=== PATIENT | female | born 1990 | race Caucasian/White ===

== ENCOUNTER 2023-03-21 08:55 | Outpatient (OUT) | payer OTHER, SELFPAY ==
--- NOTE | 2023-03-21 08:59 | US_ITS ---
[address] [address] Patient Name: LACEY BEAULIEU MRN: [id number] date: 1990 Sex: F Assigned Patient Location: US Current Patient Location: US Accession/Order Number: [id number] Exam Date: 03/21/2023 09:00 Report Date: 03/21/2023 10:23 At the request of: IRASEMA GRACE Procedure: US OB transvaginal EXAMINATION: US OB transvaginal HISTORY: MISSED PERIOD COMPARISON: No relevant comparison available. FINDINGS: Final Garcia intrauterine gestation Gestational sac: 4.12 cm, 9 weeks 4 days CRL: 2.02 cm, 8 weeks 4 days Yolk sac: 3.7 mm Heart rate: 167 bpm The uterus is normal, anteverted The ovaries are normal in appearance The cervix is closed measuring 4 cm in length Clinical age: 9 weeks 2 days Clinical BELKYS: 10/22/2019 fourth Ultrasound age: 9 weeks 1 day Ultrasound BELKYS: 10/23/2023 IMPRESSION: Viable garcia intrauterine gestation measuring 9 weeks 1 day Electronically authenticated by: STEPHANE CROWLEY Date: 03/21/2023 10:23
== END 2023-03-21 08:56 ==
PROVIDERS: Visit Provider Obstetrics & Gynecology
DX: Z34.91 Encounter for supervision of normal pregnancy, unspecified, first trimester (principal)
CPT/HCPCS: 76817

== ENCOUNTER 2023-04-21 12:43 | Outpatient (OUT) | payer OTHER, SELFPAY ==
[2023-04-21 14:04] LABS: Basophils Percent Auto 0.3 % (0.2-2.0); Eosinophils Percent Auto 0.3 % (0.9-7.0); Hematocrit 37.9 % (36.0-48.0); Hemoglobin 12.8 g/dL (12.0-16.0); Immature Granulocytes Abs Auto 0.06 10^3/uL (0.00-0.03); Immature Granulocytes Pct Auto 0.5 % (0.0-0.5); Lymphocytes Percent Auto 16.9 % (20.5-60.0); Mean Corpuscular HGB Conc 33.8 g/dL (29.9-35.2); Mean Platelet Volume 9.8 fL (9.5-13.5); Monocytes Absolute Auto 0.6 10^3/uL (0.3-0.8); Monocytes Percent Auto 5.1 % (1.7-12.0); Neutrophils Absolute Auto 9.2 10^3/uL (1.4-6.5); Neutrophils Percent Auto 76.9 % (43.0-75.0); Platelet Count 189 10^3/uL (150-450); Red Blood Count 4.26 10^6/uL (4.20-5.40); Red Cell Distribution Width 13.8 % (11.0-15.0)
[2023-04-21 14:52] LABS: Thyroid Stimulating Hormone 1.673 uIU/mL (0.358-3.740)
[2023-04-21 16:41] LABS: Estimated Average Glucose 97 mg/dL
[2023-04-22 05:07] LABS: HCV Ab Non Reactive (Non Reactive); HIV Ab/p24 Ag Screen Non Reactive (Non Reactive); Rubella Antibodies, IgG 3.49 index (Immune >0.99)
[2023-04-22 06:08] LABS: HBsAg Screen Negative (Negative)
[2023-04-22 12:09] LABS: Rapid Plasma Reagin, Quant Non Reactive (NonRea<1:1)
== END 2023-04-21 12:44 | disposition home or self-care (01) ==
LOC: LAB 12:46
PROVIDERS: Visit Provider Obstetrics & Gynecology
DX: N92.6 Irregular menstruation, unspecified (principal)
CPT/HCPCS: 36415; 83036; 84443; 85025; 86592; 86706; 86762; 86803; 86850; 86900; 86901; 87086; 87389

== ENCOUNTER 2023-04-22 20:44 | Outpatient (OUT) | payer OTHER, SELFPAY ==
[2023-04-25 16:10] LABS: Age Gdln ACOG Testing Note (.); HPV Aptima Negative (Negative); IGP, Aptima HPV, rfx 16/18,45 Note (.)
== END 2023-04-22 20:45 | disposition home or self-care (01) ==
PROVIDERS: Visit Provider Obstetrics & Gynecology
DX: Z12.4 Encounter for screening for malignant neoplasm of cervix (principal); Z11.51 Encounter for screening for human papillomavirus (HPV)
CPT/HCPCS: 87624; G0145

== ENCOUNTER 2023-05-15 12:33 | Outpatient (OUT) | payer OTHER, SELFPAY ==
[2023-05-15 14:56] LABS: Glucose 1 Hour 121 mg/dL
[2023-05-21 00:07] LABS: AFP Value 54.3 ng/mL (.); Gest. Age on Collection Date 17.1 weeks (.); Gestat. Age Based On Ultrasound (.); Insulin Dep Diabetes No (.); Maternal Age At EDD 31.7 yr (.); OSBR Risk 1 IN 3501 (.); Results Report (.)
== END 2023-05-15 12:34 | disposition home or self-care (01) ==
LOC: LAB 12:33
PROVIDERS: Visit Provider Obstetrics & Gynecology
DX: Z34.92 Encounter for supervision of normal pregnancy, unspecified, second trimester (principal)
CPT/HCPCS: 36415; 82105; 82950

== ENCOUNTER 2023-06-04 10:01 | Outpatient (OUT) | payer OTHER, SELFPAY ==
--- NOTE | 2023-06-04 10:06 | US_ITS ---
[address] [address] Patient Name: LACEY BEAULIEU MRN: [id number] date: 1990 Sex: F Assigned Patient Location: US Current Patient Location: Accession/Order Number: [id number] Exam Date: 06/04/2023 10:07 Report Date: 06/04/2023 12:15 At the request of: RENE CROSS Procedure: US OB anatomy EXAMINATION: US OB anatomy HISTORY: anatomic survey Z36.89 COMPARISON: No relevant comparison available. TECHNIQUE: Transabdominal sonographic examination was performed for obstetrical and evaluation. FINDINGS: Number: 1 Heart Rate: 146.7 bpm H.B. /min Amniotic Fluid Volume: Subjectively normal. position: Breech presentation, variable lie Placental Location: Anterior, the placental edge is 4.0 cm from the internal os Cervix Length: 5 cm , closed Normal anatomy: Lateral ventricles, cerebellum, posterior fossa, nose/lips, orbits, four-chamber heart, RVOT, LVOT, diaphragm, stomach, kidneys, abdominal cord insertion, bladder, umbilical cord arteries, three-vessel cord, spine, extremities BIOMETRY: BPD: 4.7 cm 20 weeks 2 days , 64% HC: 17.8 cm 20 weeks 2 days, 53% AC: 15.1 cm 20 weeks 2 days, 56% FL: 3.2 cm 20 weeks 0 days, 42% EFW:338.1 grams; 12 ounces, 57% FL/AC: 21.2 FL/BPD: 67.8 HC/AC: 1.2 GESTATIONAL AGE: Age by EDC: 20 weeks 0 days BELKYS by EDC: 10/22/2023 Age by current US: 20 weeks 2 days BELKYS by current US: 10/20/2023 US/US OB anatomy IMPRESSION: Placental edge is 4 cm from the internal os, otherwise normal anatomy scan *Reference: [facility] Practice Guideline for the performance of Obstetric Ultrasound Examinations, July 06, 2007. Electronically authenticated by: STEPHANE CROWLEY Date: 06/04/2023 12:15
--- NOTE | 2023-06-04 10:06 | US_ITS ---
[address] [address] Patient Name: LACEY BEAULIEU MRN: [id number] date: 1990 Sex: F Assigned Patient Location: US Current Patient Location: Accession/Order Number: [id number] Exam Date: 06/04/2023 10:07 Report Date: 06/04/2023 12:15 At the request of: RENE CROSS Procedure: US OB cervical length EXAMINATION: US OB anatomy HISTORY: anatomic survey Z36.89 COMPARISON: No relevant comparison available. TECHNIQUE: Transabdominal sonographic examination was performed for obstetrical and evaluation. FINDINGS: Number: 1 Heart Rate: 146.7 bpm H.B. /min Amniotic Fluid Volume: Subjectively normal. position: Breech presentation, variable lie Placental Location: Anterior, the placental edge is 4.0 cm from the internal os Cervix Length: 5 cm , closed Normal anatomy: Lateral ventricles, cerebellum, posterior fossa, nose/lips, orbits, four-chamber heart, RVOT, LVOT, diaphragm, stomach, kidneys, abdominal cord insertion, bladder, umbilical cord arteries, three-vessel cord, spine, extremities BIOMETRY: BPD: 4.7 cm 20 weeks 2 days , 64% HC: 17.8 cm 20 weeks 2 days, 53% AC: 15.1 cm 20 weeks 2 days, 56% FL: 3.2 cm 20 weeks 0 days, 42% EFW:338.1 grams; 12 ounces, 57% FL/AC: 21.2 FL/BPD: 67.8 HC/AC: 1.2 GESTATIONAL AGE: Age by EDC: 20 weeks 0 days BELKYS by EDC: 10/22/2023 Age by current US: 20 weeks 2 days BELKYS by current US: 10/20/2023 US/US OB cervical length IMPRESSION: Placental edge is 4 cm from the internal os, otherwise normal anatomy scan *Reference: [facility] Practice Guideline for the performance of Obstetric Ultrasound Examinations, July 06, 2007. Electronically authenticated by: STEPHANE CROWLEY Date: 06/04/2023 12:15
== END 2023-06-04 10:02 | disposition home or self-care (01) ==
LOC: US 10:01
PROVIDERS: Visit Provider Physician Assistant
DX: Z36.89 Encounter for other specified antenatal screening (principal)
CPT/HCPCS: 76805; 76817

== ENCOUNTER 2023-08-08 10:26 | Outpatient (OUT) | payer OTHER, SELFPAY ==
[2023-08-08 11:45] LABS: Basophils Percent Auto 0.3 % (0.2-2.0); Eosinophils Percent Auto 0.5 % (0.9-7.0); Hematocrit 37.9 % (36.0-48.0); Hemoglobin 12.2 g/dL (12.0-16.0); Immature Granulocytes Abs Auto 0.05 10^3/uL (0.00-0.03); Immature Granulocytes Pct Auto 0.6 % (0.0-0.5); Lymphocytes Percent Auto 22.2 % (20.5-60.0); Mean Corpuscular HGB Conc 32.2 g/dL (29.9-35.2); Mean Corpuscular Hemoglobin 29.7 pg (26.7-34.0); Mean Corpuscular Volume 92.2 fL (81.0-99.0); Mean Platelet Volume 9.8 fL (9.5-13.5); Monocytes Absolute Auto 0.5 10^3/uL (0.3-0.8); Monocytes Percent Auto 5.1 % (1.7-12.0); Neutrophils Absolute Auto 6.3 10^3/uL (1.4-6.5); Neutrophils Percent Auto 71.3 % (43.0-75.0); Platelet Count 215 10^3/uL (150-450); Red Blood Count 4.11 10^6/uL (4.20-5.40); Red Cell Distribution Width 13.2 % (11.0-15.0); White Blood Count 8.9 10^3/uL (4.0-11.0)
[2023-08-08 12:17] LABS: Glucose 1 Hour 166 mg/dL
== END 2023-08-08 10:27 | disposition home or self-care (01) ==
LOC: LAB 10:26
PROVIDERS: Visit Provider Obstetrics & Gynecology
DX: Z13.1 Encounter for screening for diabetes mellitus (principal)
CPT/HCPCS: 36415; 82950; 85025

== ENCOUNTER 2023-08-27 10:02 | Outpatient (OUT) | payer OTHER, SELFPAY ==
--- NOTE | 2023-08-27 10:06 | US_ITS ---
The [address] [address] Patient Name: LACEY BEAULIEU MRN: [id number] date: 1990 Sex: F Assigned Patient Location: US Current Patient Location: Accession/Order Number: [id number] Exam Date: 08/27/2023 10:07 Report Date: 08/28/2023 02:02 At the request of: RENE CROSS Procedure: US OB growth EXAMINATION: US OB growth HISTORY: Size Inconsistent With Dates O26.849 COMPARISON: Ultrasound OB anatomy 06/04/2023 FINDINGS: Heart Rate: 139.9 bpm Number: 1.0 Position: CEPHALIC Amniotic Fluid Volume: 13.5 cm Maximum Vertical Pocket: 3.8 cm BIOMETRY: BPD: 8.0 cm cm; 32 weeks 2 days; 49% HC: 29.2 cmcm; 32 weeks 1 days ; 18% AC: 30.3 cm cm; 34 weeks 2 days; 96% FL: 6.0 cm cm; 31 weeks 1 days; 17% EFW: 2099.6 grams; 72% FL/AC: 19.7 FL/BPD: 74.5 HC/AC: 1.0 GESTATIONAL AGE: Age by EDC: 32 weeks 0 days BELKYS by EDC: 10/22/2023 Age by US: 32 weeks 3 days BELKYS by US: 10/19/2023 US/US OB growth IMPRESSION: 1. Single live intrauterine with growth detailed above. Electronically authenticated by: ATIF DE LEON Date: 08/28/2023 02:02
[2023-08-27 10:49] LABS: Estimated Average Glucose 111 mg/dL; Glycohemoglobin A1C 5.5 % (4.5-6.2)
== END 2023-08-27 10:03 | disposition home or self-care (01) ==
LOC: US 10:02
PROVIDERS: Visit Provider Physician Assistant
DX: O26.843 Uterine size-date discrepancy, third trimester (principal); R73.09 Other abnormal glucose; Z3A.32 32 weeks gestation of pregnancy
CPT/HCPCS: 36415; 76816; 83036

== ENCOUNTER 2023-09-22 20:51 | Outpatient (REF) | payer OTHER, SELFPAY | END 2023-09-22 20:52 | disposition home or self-care (01) | LOC: LAB 20:51 | PROVIDERS: Visit Provider Physician Assistant | DX: Z34.93 Encounter for supervision of normal pregnancy, unspecified, third trimester (principal) | CPT/HCPCS: 87081 ==

== ENCOUNTER 2023-10-01 15:07 | Outpatient (OUT) | payer OTHER, SELFPAY ==
[2023-10-01 16:11] LABS: Alanine Aminotransferase 13 U/L (14-59); Aspartate Amino Transferase 14 U/L (15-37)
[2023-10-02 17:07] LABS: Bile Acids 2.8 umol/L (0.0-10.0)
== END 2023-10-01 15:08 | disposition home or self-care (01) ==
LOC: LAB 15:08
PROVIDERS: PCP Family Medicine; Visit Provider Obstetrics & Gynecology
DX: L29.9 Pruritus, unspecified (principal)
CPT/HCPCS: 36415; 82239; 84450; 84460

== ENCOUNTER 2023-10-15 05:05 | Inpatient (IN) | payer OTHER, SELFPAY ==
[2023-10-15] VITALS (57 sets, daily range): BP systolic 97–168; BP diastolic 50–95; PULSE 72–142; RESP 16–20; TEMP 36.3–36.4
--- OUTSIDE RECORDS SUMMARY | 2023-10-15 05:08 | XMS_ITS | CCD ---
Author Name Unknown Address [address] [place], [place] [address] Organization [facility] Care Team Providers Care Wardrobe Specialty Worker Name Role Phone Enma Palacios Unavailable SANJAY ., DR VILLALPANDO Attending Unavailable SANJAY ., DR VILLALPANDO Consulting Unavailable SANJAY ., DR VILLALPANDO Primary Care Unavailable SANJAY ., DR VILLALPANDO Admitting Unavailable IRASEMA GRACE Attending Unavailable RENE CROSS Attending Unavailable RENE RCOSS Attending Unavailable IRASEMA GRACE Attending Unavailable RENE CROSS Attending Unavailable Allergies Allergy Classification Reported Allergen(s) Allergy Type Date of Onset Reaction(s) Facility (1 source) Penicillin V Drug Allergy rash [facility] Other (1 source) sulfaSALAzine Drug Allergy rash [facility] Other (1 source) Penicillin Drug Allergy [facility] (1 source) Sulfonamides (Antibiotic) Drug allergy (disorder) [facility] Medications Current Medications Medication Drug Class(es) Dates Sig (Normalized) Sig (Original) IUD's (1 source) IUD's Active Problems Problem Classification Problem Date Documented Date Episodic/Chronic Immunizations and screening for infectious disease (2 sources) Contact with and (suspected) exposure to other viral communicable diseases; Translations: [Encounter for screening for human papillomavirus (HPV)] Onset: 07-24-2021 Resolved: 07-24-2021 Episodic Other screening for suspected conditions (not mental disorders or infectious disease) (4 sources) Encounter for screening for malignant neoplasm of cervix; Translations: [ENC SCREENING MALIG NEOPLASM CERV] Onset: 02-05-2023 Episodic Results Test Name Value Interpretation Reference Range Facil ity PAP ACOG PANEL 2: 30 to 65on 02-12-2023 . . Normal [facility] Comment on above: Result Comment: Performed at: WB Performed By: #### [id number] #### [facility] [address] [address] [address] Stephie Kelly Age Gdln ACOG Testing 30-65 Normal [facility] Comment on above: Performed By: #### [id number] #### [facility] [address] [address] [address] Stephie Kelly DIAGNOSIS: Comment Normal [facility] Comment on above: Result Comment: NEGATIVE FOR INTRAEPITHE LIAL LESION OR MALIGNANCY. Performed at: WB Performed By: #### [id number] #### [facility] [address] [address] [address] Stephie Kelly HPV Aptima Negative Normal Negative [facility] Comment on above: Result Comment: This nucleic acid amplif ication test detects fourteen high-risk HPV types (16,18,31,33,35,39,45,51,52,56,58,59,66,68) without differentiation. Performed at: =G Performed By: #### [id number] #### [facility] [address] [address] [address] Stephie Kelly HPV Genotype Reflex Comment Normal [facility] Comment on above: Result Comment: Criteria not met, HPV Ge notype not performed. Performed at: WB Performed By: #### [id number] #### [facility] [address] [place] [address] Dr. Stephie Kelly Methodology: Comment Normal [facility] Comment on above: Result Comment: This liquid based ThinPr ep(R) pap test was screened with the use of an image guided system. Performed at: WB Performed By: #### [id number] #### [facility] [address] [place] [address] Dr. Stephie Kelly Note: Comment Normal [facility] Comment on above: Result Comment: The Pap smear is a scree leigh ann test designed to aid in the detection of premalignant and malignant conditions of the uterine cervix. It is not a diagnostic procedure and should not be used as the sole means of detecting cervical cancer. Both false-positive and false-negative reports do occur. . Performed at: WB Performed By: #### [id number] #### [facility] [address] [address] [address] Stephie Kelly Performed by: Comment Normal [facility] Comment on above: Result Comment: Lor Anthony, Cytot echnologist (ASCP) Performed at: WB Performed By: #### [id number] #### [facility] [address] [address] [address] Stephie Kelly Specimen adequacy: Comment Normal [facility] Comment on above: Result Comment: Satisfactory for evaluat ion. Endocervical and/or squamous metaplastic cells (endocervical component) are present. Performed at: WB Performed By: #### [id number] #### [facility] [address] [address] [address] Stephie Kelly COVID Quick Testingon 2020 Result Negative [facility] Other Vital Signs Date Time Vital Sign Value Performing Clinician Facility 07-24-2021 16:50-0400 Body height 165.1 cm Enma Palacios Other [facility] Other 07-24-2021 16:50-0400 Body mass index (BMI) [Ratio] 25.79 kg/m2 Enma Palacios Other [facility] Other 07-24-2021 16:50-0400 Body temperature 99.1 [degF] Enma Palacios Other [facility] Other 07-24-2021 16:50-0400 Body weight 70.31 kg Enma Palacios Other [facility] Other 07-24-2021 16:50-0400 Respiratory rate 18 /min Enma Palacios Other [facility] Other 07-24-2021 16:50-0400 SaO2% (BldA) [Mass fraction] 99 % Enma Palacios Other [facility] Other Encounters Encounter Date Encounter Type Care Provider Facility Start: 10-08-2023 End: 10-08-2023 ambulatory RENE AMERICA Not Available Start: 10-01-2023 End: 10-01-2023 ambulatory IRASEMA GRACE Not Available Start: 09-22-2023 End: 09-22-2023 ambulatory RENE CROSS Not Available Start: 09-08-2023 End: 09-08-2023 ambulatory IRASEMA SANJAY Not Available Start: 08-25-2023 End: 08-25-2023 ambulatory RENE AMERICA Not Available Start: 02-05-2023 End: 02-05-[address] IRASEMA GRACE . Facility: Start: 07-24-2021 Office outpatient vi sit 15 minutes Emna Palacios [facility] Payers Date Payer Category Payer Unknown [id number] 1990 Unknown [id number] 2.16.84 [id number] 1990 Unknown [id number] 1990 Unknown [id number] 1990 Unknown [id number] 1990 Unknown [id number] 1990 Unknown [id number] 1957 Unknown [id number] Unknown [id number] Social History Date Type Detail Facility Sex Assigned At [facility] Other Evaluation note 07-24-2021 Note Date & Type Note Facility 07-24-2021 Evaluation note Encounter Date Diagnosis Assessment Notes Jul, Contact with and (suspected) exposure to other viral communicable diseases (ICD-10 - Z20.828) Today test was performed in office. Results are currently negative. That does not mean that you will not develop COVID or do not currently have a low viral count of COVID. The rapid test works best if symptoms have been over 72 hours and the results can vary if you are asymptomatic There is a higher chance of false negative results to occur if testing is performed too soon. It is recommended that even if results are negative and you have been exposed to someone that has COVID that you follow current CDC recommendations . These can be found at CDC.GOV. Follow up with primary care provider if symptoms persist or do not improve Jul, Other Additional time spent conducting pre-visit phone call, screening for symptoms, instructions on social distancing, application and removal of PPE, and cleaning of examination room, equipment and supplies was preformed. Patient education given for testing methodology and results. Patient care instructions given in writting by [facility] document. [facility] Other Summary Purpose Family History No Family History Records FoundNo Family History Records Found Advance Directives No Advanced Directives Records FoundNo Advanced Directives Records Found Additional Source Comments REASON FOR VISIT (unrecogniz ed section and content) #29 BODYACHES, H/A, DIARRHEA X 3 DAYS, COVID Provider Visit INFORMATION SOURCE (unrecogn ized section and content) DATE CREATED AUTHOR [facility]12/2023 [facility] DATE CREATED AUTHOR 'S ORGANIZ ATION 10/09/2023 [facility] FOR RECORDS PERTAINING TO PATIENTS WHO ARE OR HAVE BEEN ENROLLED IN A CHEMICAL DEPENDENCY/SUBSTANCEABUSE PROGRAM, SOME INFORMATION MAY BE OMITTED. This clinical summary was aggregated from multiple sources. Caution should be exercised in using it in the provision of clinical care. This summary normalizes information from multiple sources, and as a consequence, information in this document may materially change the coding, format and clinical context of patient data. In addition, data may be omitted in some cases. CLINICAL DECISIONS SHOULD BE BASED ON THE PRIMARY CLINICAL RECORDS. [facility]. provides no warranty or guarantee of the accuracy or completeness of information in this document.
[2023-10-15 06:15] LABS: Hematocrit 37.6 % (36.0-48.0); Hemoglobin 12.3 g/dL (12.0-16.0); Mean Corpuscular HGB Conc 32.7 g/dL (29.9-35.2); Mean Corpuscular Hemoglobin 29.2 pg (26.7-34.0); Mean Corpuscular Volume 89.3 fL (81.0-99.0); Mean Platelet Volume 11.6 fL (9.5-13.5); Platelet Count 195 10^3/uL (150-450); Red Blood Count 4.21 10^6/uL (4.20-5.40); Red Cell Distribution Width 14.8 % (11.0-15.0); White Blood Count 11.1 10^3/uL (4.0-11.0)
[2023-10-15] MEDS: OXYTOCIN 10 UNIT in 0.9 % SODIUM CHLORIDE 500 ML 6.012 UNIT IV (07:00)
[2023-10-15 09:09] LABS: Cannabinoid Screen Urine NEGATIVE (NEGATIVE); Cocaine Screen Urine NEGATIVE (NEGATIVE); Methamphetamines Screen Urine NEGATIVE (NEGATIVE); Opiate Screen Urine NEGATIVE (NEGATIVE); Phencyclidine Screen Urine NEGATIVE (NEGATIVE)
[2023-10-15 09:10] LABS: Amphetamine Screen Urine NEGATIVE (NEGATIVE); Barbiturates Screen Urine NEGATIVE (NEGATIVE); Benzodiazepines Screen Urine NEGATIVE (NEGATIVE); Buprenorphine Screen Urine NEGATIVE (NEGATIVE); Methadone Screen Urine NEGATIVE (NEGATIVE); Oxycodone Screen Urine NEGATIVE (NEGATIVE); Tricyclic Antidepressant Urine NEGATIVE (NEGATIVE)
[2023-10-15] MEDS: 0.9 % SODIUM CHLORIDE 1,000 ML 1000 ML IV (11:24)
[2023-10-15] MEDS: LIDOCAINE HCL 2% PF 100 MG/5 ML VIAL INJ (12:28)
[2023-10-15] MEDS: FENTANYL CITRATE/PF 100 MCG/2 ML VIAL EPIDURAL (12:28)
[2023-10-15] MEDS: ROPIVACAINE HCL/PF 400 MG/200 ML PREMIX 6 MG EPIDURAL (12:29)
[2023-10-15] MEDS: 0.9 % SODIUM CHLORIDE 1,000 ML 125 ML IV (12:30)
--- NOTE | 2023-10-15 16:29 | PM.OBPRCVD ---
Procedure Intrapartal events: None Induction method: per misoprostol protocol Delivery augmentation: rupture of membranes and pitocin Delivery monitor: external FHT and external uterine Route of delivery: Episiotomy Description: none Laceration description: perineal - 1st degree Delivery repair: Vicryl Estimated blood loss (mL): 250 Anesthesia type: Epidural Disposition: floor Infant Delivery date: 10/15/23 Gender: female presentation: vertex Placental delivery description: Spontaneous cord description: 3 Vessels
[2023-10-15] MEDS: IBUPROFEN 600 MG TABLET PO (20:56)
[2023-10-16 01:44] VITALS: BP 125/68; PULSE 79; TEMP 36.9
[2023-10-16] MEDS: IBUPROFEN 600 MG TABLET PO ×2 (03:29→11:22)
[2023-10-16] MEDS: BENZOCAINE/MENTHOL 85 GRAM SPRAY BOTTLE 1 APPLIC TOPICAL (03:30)
[2023-10-16] MEDS: GLYCERIN/WITCH HAZEL PADS 1 PAD TOPICAL (03:31)
[2023-10-16 05:49] LABS: Basophils Percent Auto 0.3 % (0.2-2.0); Eosinophils Percent Auto 0.2 % (0.9-7.0); Hematocrit 32.7 % (36.0-48.0); Hemoglobin 10.2 g/dL (12.0-16.0); Immature Granulocytes Abs Auto 0.07 10^3/uL (0.00-0.03); Immature Granulocytes Pct Auto 0.5 % (0.0-0.5); Lymphocytes Absolute Auto 3.3 10^3/uL (1.2-3.8); Lymphocytes Percent Auto 25.4 % (20.5-60.0); Mean Corpuscular HGB Conc 31.2 g/dL (29.9-35.2); Mean Corpuscular Hemoglobin 28.5 pg (26.7-34.0); Mean Corpuscular Volume 91.3 fL (81.0-99.0); Mean Platelet Volume 11.2 fL (9.5-13.5); Monocytes Absolute Auto 0.9 10^3/uL (0.3-0.8); Monocytes Percent Auto 6.9 % (1.7-12.0); Neutrophils Absolute Auto 8.6 10^3/uL (1.4-6.5); Neutrophils Percent Auto 66.7 % (43.0-75.0); Platelet Count 168 10^3/uL (150-450); Red Blood Count 3.58 10^6/uL (4.20-5.40); White Blood Count 12.8 10^3/uL (4.0-11.0)
--- NOTE | 2023-10-16 07:51 | PM.OBPN ---
OB - PN: Subj Subjective Patient comments: no complaints, tolerating diet and flatus present infant status: doing well Exam Constitutional Vital Signs, click to edit/add: Last Vital Signs Temp 98.4 F 10/16/23 01:44 Pulse 79 10/16/23 01:44 Resp 18 10/15/23 17:22 BP 125/68 10/16/23 01:44 O2 Del Method Room Air 10/16/23 01:44 Common normals: no apparent distress and oriented x3 General appearance: cooperative and comfortable HENMT Common normals: normocephalic Eye Common normals: EOMs intact bilaterally Neck & C-Spine Common normals: no lymphadenopathy General: normal visual inspection Lymph Lymphatic: no lymphadenopathy noted Chest Common normals: inspection of chest normal Respiratory Common normals: normal respiratory effort, no use of accessory muscles and clear to auscultation bilaterally Cardio Common normals: regular rate and regular rhythm Rate: regular rate Rhythm: regular rhythm GI Common normals: Normal to inspection, nondistended, normoactive bowel sounds present Inspection: normal to inspection Auscultation: normoactive bowel sounds Palpation: soft Common normals: no CVA tenderness Back & Pelvis Common normals: no CVA tenderness Extremity Common normals: normal to inspection and full ROM Neuro Common normals: oriented x3 Sensorium/orientation: awake, alert, oriented to person, oriented to place and oriented to time Psych Common normals: mental status grossly normal Results Labs Labs: Short CBC 10/16/23 Range/Units 05:36 WBC 12.8 H (4.0-11.0) 10^3/uL Hgb 10.2 L (12.0-16.0) g/dL Hct 32.7 L (36.0-48.0) % Plt Count 168 (150-450) 10^3/uL Urinary Catheter Management Urinary Catheter Management Urethral: Cath placed during this visit: yes, but has since been removed by the nurse Insertion date: 10/15/23 Insertion time: 13:48 Removal date: 10/15/23 Removal time: 16:00 OB - PN: A/P Plan - Vaginal Delivery day: 1 Plan: routine care Time Spent with Patient Time: Total time spent is greater than 50% in coordination of care (as documented) at patient's floor/unit and/or counseling patient: Total time spent with greater than 50% in coordination of care (as documented) at patient's floor/unit and/or counseling patient: less than 15 minutes
[2023-10-16 08:15] VITALS: RESP 16; TEMP 37.1
[2023-10-16] MEDS: ACETAMINOPHEN 325 MG TABLET 650 MG PO (08:50)
[2023-10-16] MEDS: DOCUSATE SODIUM 100 MG CAPSULE PO (11:22)
--- NOTE | 2023-10-16 11:38 | PC.NURSE ---
given gift packs and teaching folder with explanation on all, medicated for back pain and reviewed plan of care
--- NOTE | 2023-10-16 13:11 | PC.NURSE ---
Reviewed latch and positioning, states doing better with each feed. Handouts given with discussion. New parents attentive and engaged to education.
--- NOTE | 2023-10-16 14:28 | PC.NURSE ---
discussed rash, voices no needs
[2023-10-16 19:40] VITALS: BP 128/66; PULSE 71
== END 2023-10-16 21:50 | disposition home or self-care (01) | DRG 807 ==
PROVIDERS: Admitting Provider Obstetrics & Gynecology; PCP Family Medicine; Visit Provider Obstetrics & Gynecology
DX: O70.0 First degree perineal laceration during delivery (principal); Z37.0 Single live birth; Z3A.39 39 weeks gestation of pregnancy
CPT/HCPCS: 36415; 51702; 59050; 59410; 80307; 85025; 85027; 86850; 86900; 86901; 96365; 96366; 96376; J2590; J2795; J3010

== ENCOUNTER 2023-12-17 10:25 | Outpatient (OUT) | payer OTHER, SELFPAY ==
--- NOTE | 2023-12-17 10:27 | US_ITS ---
The [address] [address] Patient Name: LACEY BEAULIEU MRN: [id number] date: 1990 Sex: F Assigned Patient Location: US Current Patient Location: US Accession/Order Number: [id number] Exam Date: 12/17/2023 10:30 Report Date: 12/17/2023 11:09 At the request of: IRASEMA GRACE Procedure: US pelvis transvaginal EXAM: Pelvic ultrasound HISTORY: . pelvic cramping R10.2 . COMPARISON: None. TECHNIQUE: Transvaginal scanning was performed FINDINGS: Scanning of the pelvis demonstrates uterus to measure 8.6 x 3.8 x 5.1 cm. Uterus is anteverted. Endometrial complex measures 3 mm. Linear hyperechoic structure is noted within the endometrial cavity of the lower uterine segment. Right ovary measures 2.6 x 2.7 x 1.7 cm. Color-flow is noted. No masses are noted. Left ovary measures 3.2 x 1.9 x 2.3 cm. Color-flow is noted. Follicles are noted. No fluid is noted in the cul-de-sac. US/US pelvis transvaginal IMPRESSION: 1. Anteverted uterus. 2. Endometrial complex measures 3 mm. 3. IUD is noted with the IUD within the lower uterine segment. The uppermost portion of the IUD lies within the lower uterine segment and extends inferiorly. The IUD does not extend into the endometrial cavity of the fundus of uterus. Electronically authenticated by: STEPHANE RUDOLPH Date: 12/17/2023 11:09
--- OUTSIDE RECORDS SUMMARY | 2023-12-17 10:28 | XMS_ITS | CCD ---
Author Name Unknown Address [address] [place] [address] Organization [facility] Care Team Providers Care Telephone Sex Worker Name Role Phone Enma Palacios Unavailable SANJAY ., DR VILLALPANDO Attending Unavailable SANJAY ., DR VILLALPANDO Consulting Unavailable SANJAY ., DR VILLALPANDO Primary Care Unavailable SNAJAY ., DR VILLALPANDO Admitting Unavailable IRASEMA GRACE Attending Unavailable RENE CROSS Attending Unavailable IRASEMA GRACE Attending Unavailable RENE CROSS Attending Unavailable RENE CROSS Attending Unavailable IRASEMA GRACE Attending Unavailable RENE CROSS Attending Unavailable Allergies Allergy Classification Reported Allergen(s) Allergy Type Date of Onset Reaction(s) Facility (1 source) Penicillin V Drug Allergy rash [employer] [facility] Other (1 source) sulfaSALAzine Drug Allergy rash [facility] Other (1 source) Penicillin Drug Allergy [facility] (1 source) Sulfonamides (Antibiotic) Drug allergy (disorder) [facility] Medications Current Medications Medication Drug [...] 30 to 65on 02-12-2023 . . Normal [facility] Comment on above: Result Comment: Performed at: WB Performed By: #### [id number] #### [facility] [address] [address] [address] Stephie Kelly Age Gdln ACOG Testing 30-65 Normal [facility] Comment on above: Performed By: #### [id number] #### [facility] [address] [address] [address] Stephie Kelly DIAGNOSIS: Comment Normal [facility] Comment on above: Result Comment: NEGATIVE FOR INTRAEPITHE LIAL LESION OR MALIGNANCY. Performed at: WB Performed By: #### [id number] #### [facility] [address] [address] [address] Stephie Kelly HPV Aptima Negative Normal Negative [facility] Comment on above: Result Comment: This nucleic acid amplif ication test detects fourteen high-risk HPV types (16,18,31,33,35,39,45,51,52,56,58,59,66,68) without differentiation. Performed at: =G Performed By: #### [id number] #### [facility] [address] [address] [address] Stephie Kelly HPV Genotype Reflex Comment Normal [facility] Comment on above: Result Comment: Criteria not met, HPV Ge notype not performed. Performed at: WB Performed By: #### [id number] #### [facility] [address] [place] [address] Dr. Stephie Kelly Methodology: Comment Normal [facility] Comment on above: Result Comment: This liquid based ThinPr ep(R) pap test was screened with the use of an image guided system. Performed at: WB Performed By: #### [id number] #### [facility] [address] [place] [address] Dr. Stephie Kelly Note: Comment Normal [facility] Comment on above: Result Comment: The Pap smear is a scree leigh ann test designed to aid in the detection of premalignant and malignant conditions of the uterine cervix. It is not a diagnostic procedure and should not be used as the sole means of detecting cervical cancer. Both false-positive and false-negative reports do occur. . Performed at: WB Performed By: #### [id number] #### [facility] [address] [address] [address] Stephie Kelly Performed by: Comment Normal [facility] Comment on above: Result Comment: Lor Anthony Cytot echnologist (ASCP) Performed at: WB Performed By: #### [id number] #### [facility] [address] [address] [address] Stephie Kelly Specimen adequacy: Comment Normal [facility] Comment on above: Result Comment: Satisfactory for evaluat ion. Endocervical and/or squamous metaplastic cells (endocervical component) are present. Performed at: WB Performed By: #### [id number] #### [facility] [address] [address] [address] Stephie Kelly COVID Quick Testingon 2020 Result Negative [employer] Other Vital Signs Date Time Vital Sign Value Performing Clinician Facility 07-24-2021 16:50-0400 Body height 165.1 cm Enma Philip Other [employer] Other 07-24-2021 16:50-0400 Body mass index (BMI) [Ratio] 25.79 kg/m2 Enma Palacios Other [employer] Other 07-24-2021 16:50-0400 Body temperature 99.1 [degF] Enma Palacios Other [employer] Other 07-24-2021 16:50-0400 Body weight 70.31 kg Enma Palacios Other [employer] Other 07-24-2021 16:50-0400 Respiratory rate 18 /min Enma Palacios Other [employer] Other 07-24-2021 16:50-0400 SaO2% (BldA) [Mass fraction] 99 % Enma Palacios Other [facility] Other Encounters Encounter Date Encounter Type Care Provider Facility Start: 11-26-2023 End: 11-26-2023 ambulatory RENE AMERICA Not Available Start: 10-14-2023 End: 10-14-2023 ambulatory IRASEMA SANJAY Not Available Start: 10-08-2023 End: 10-08-2023 ambulatory RENE AMERICA Not Available Start: 10-01-2023 End: 10-01-2023 ambulatory IRASEMA SANJAY Not Available Start: 09-22-2023 End: 09-22-2023 ambulatory RENE AMERICA Not Available Start: 09-08-2023 End: 09-08-2023 ambulatory IRASEMA SANJAY Not Available Start: 08-25-2023 End: 08-25-2023 ambulatory RENE AMERICA Not Available Start: 02-05-2023 End: 02-05-[address] IRASEMA GRACE . Facility: Start: 07-24-2021 Office outpatient vi sit 15 minutes Enma Palacios [facility] Payers Date Payer Category Payer Unknown [id number] 1990 Unknown [id number] 2.16.84 [id number] 1990 Unknown [id number] 2.16.84 0.1.329022.3.579.2.1258 1992 Unknown [id number] 2.16.84 0.1.831505.3.579.2.9 1992 Unknown [id number] 2.16.840 .1.028277.3.579.2.1258 1992 Unknown [id number] 2.16.840 .1.641801.3.579.2.9 1992 Unknown [id number] 2.16.840 .1.012135.3.579.2.9 1992 Unknown [id number] 2.16.840 .1.148620.3.579.2.1259 1992 Unknown [id number] 2.16.840 .1.232885.3.579.2.1259 1959 Unknown [id number] Unknown [id number] 2.16. 840.1.264425.19 Social History Date Type Detail Facility Sex Assigned At [employer] Other Evaluation note 07-24-2021 Note Date & [...] Patient care instructions given in writting by [facility] Care At Home document. [employer] Other Summary Purpose Family History No Family History Records FoundNo Family History Records Found Advance Directives No Advanced Directives Records FoundNo Advanced Directives Records Found Additional Source Comments REASON FOR VISIT (unrecogniz ed section and content) #29 BODYACHES, H/A, DIARRHEA X 3 DAYS, COVID Provider Visit INFORMATION SOURCE (unrecogn ized section and content) DATE CREATED AUTHOR 02/12/2023 [facility] DATE CREATED AUTHOR AUTHOR'S ORGANIZ ATION 12/04/2023 [facility] [employer] FOR RECORDS PERTAINING TO PATIENTS WHO ARE [...] BE BASED ON THE PRIMARY CLINICAL RECORDS. [facility] [employer] [facility]. provides no warranty or guarantee of the accuracy or completeness of information in this document.
== END 2023-12-17 10:26 | disposition home or self-care (01) ==
LOC: US 10:25
PROVIDERS: PCP Family Medicine; Visit Provider Obstetrics & Gynecology
DX: R10.2 Pelvic and perineal pain (principal); Z97.5 Presence of (intrauterine) contraceptive device
CPT/HCPCS: 76830

== ENCOUNTER 2024-05-17 20:25 | Outpatient (REF) | payer OTHER, SELFPAY ==
--- OUTSIDE RECORDS SUMMARY | 2024-05-17 20:28 | XMS_ITS | CCD ---
Author Organization [facility] Care Team Providers Care Legal Arbitrator Name Role Phone Enma Palacios Unavailable SANJAY ., DR VILLALPANDO Attending Unavailable SANJAY ., DR VILLALPANDO Consulting Unavailable SANJAY ., DR VILLALPANDO Primary Care Unavailable SANJAY ., DR VILLALPANDO Admitting Unavailable IRASEMA GRACE Attending Unavailable RENE CROSS Attending Unavailable SANJAY, IRASEMA Attending Unavailable RENE CROSS Attending Unavailable RENE CROSS Attending Unavailable SANJAY, IRASEMA Attending Unavailable IRASEMA GRACE Attending Unavailable JUVE GONZALEZ Attending Unavailable SANJAY, IRASEMA Attending Unavailable SANJAY, IRASEMA Attending Unavailable AMERICA, RENE Attending Unavailable Allergies Allergy Classification Reported Allergen(s) Allergy Type Date of Onset Reaction(s) Facility (1 source) Penicillin V Drug Allergy rash [employer] Other (1 source) sulfaSALAzine Drug Allergy rash [facility] Other (1 source) Penicillin Drug Allergy [facility] (1 source) Sulfonamides (Antibiotic) Drug allergy (disorder) [facility] Medications Current Medications Medication Drug Class(es) [...] 30 to 65on 02-12-2023 . . Normal [facility] Comment on above: Result Comment: Performed at: WB Performed By: #### [id number] #### [facility] [address] [address] [address] Stephie Kelly Age Gdln ACOG Testing 30-65 Normal [facility] Comment on above: Performed By: #### [id number] #### [facility] [address] [address] [address] Stephie Kelly DIAGNOSIS: Comment Normal [facility] Comment on above: Result Comment: NEGATIVE FOR INTRAEPITHE LIAL LESION OR MALIGNANCY. Performed at: WB Performed By: #### [id number] #### [facility] [address] [address] [address] Stephie Kelly HPV Aptima Negative Normal Negative [facility] Comment on above: Result Comment: This nucleic acid amplif ication test detects fourteen high-risk HPV types (16,18,31,33,35,39,45,51,52,56,58,59,66,68) without differentiation. Performed at: =G Performed By: #### [id number] #### [facility] [address] [address] [address] Stephie Kelly HPV Genotype Reflex Comment Normal [facility] Comment on above: Result Comment: Criteria not met, HPV Ge notype not performed. Performed at: WB Performed By: #### [id number] #### [facility] [address] [place] [address] Dr. Stephie Kelly Methodology: Comment Normal [facility] Comment on above: Result Comment: This liquid based ThinPr ep(R) pap test was screened with the use of an image guided system. Performed at: WB Performed By: #### [id number] #### [facility] [address] [place] [address] Dr. Stephie Kelly Note: Comment Normal [facility] Comment on above: Result Comment: [...] Performed at: WB Performed By: #### [id number] #### [facility] [address] [place] [address] Dr. Stephie Kelly Performed by: Comment Normal [facility] Comment on above: Result Comment: Lor Anthony, Cytot echnologist (ASCP) Performed at: WB Performed By: #### [id number] #### [facility] [address] [address] [address] Stephie Kelly Specimen adequacy: Comment [facility] Comment on above: Result Comment: Satisfactory for evaluat ion. Endocervical and/or squamous metaplastic cells (endocervical component) are present. Performed at: WB Performed By: #### [id number] #### [facility] [address] [place] [address] Dr. Stephie Kelly COVID Quick Testingon 2020 Result Negative [employer] Other Vital Signs Date Time Vital Sign Value Performing Clinician Facility 07-24-2021 16:50-0400 Body height 165.1 cm Enma Palacios Other [employer] Other 07-24-2021 16:50-0400 Body mass index (BMI) [Ratio] 25.79 kg/m2 Enma Palacios Other [employer] Other 07-24-2021 16:50-0400 Body temperature 99.1 [degF] Enma Philip Other [employer] Other 07-24-2021 16:50-0400 Body weight 70.31 kg Enma Palacios Other [employer] Other 07-24-2021 16:50-0400 Respiratory rate 18 /min Enma Palacios Other [employer] Other 07-24-2021 16:500400 SaO2% (BldA) [Mass fraction] 99 % Enma Palacios Other [employer] Other Encounters Encounter Date Encounter Type Care Provider Facility Start: 01-27-2024 End: 01-27-2024 ambulatory IRASEMA SANJAY Not Available Start: 01-22-2024 End: 01-22-2024 ambulatory JUVE GONZALEZ Not Available Start: 12-30-2023 End: 12-30-2023 ambulatory IRASEMA SANJAY Not Available Start: 12-16-2023 End: 12-16-2023 ambulatory IRASEMA SANJAY Not Available Start: 11-26-2023 End: 11-26-2023 ambulatory RENE AMERICA [...] Start: 02-05-2023 End: 02-05-[address] IRASEMA SANJAY . Facility: Start: 07-24-2021 Office outpatient vi sit 15 minutes Enma Palacios [facility] Payers Date Payer Category Payer Unknown [id number] 1990 Unknown [id number] 2.16.84 0.1.891471.3.579.2.593 1990 Unknown [id number] 2.16.84 0.1.765437.3.579.2.1259 1992 Unknown [id number] 2.16.84 0.1.746398.3.579.2.1258 1992 Unknown [id number] 2.16.84 0.1.186112.3.579.2.1258 1992 Unknown [id number] 2.16.84 0.1.898930.3.579.2.1258 1992 Unknown [id number] 2.16.84 0.1.513631.3.579.2.1258 1992 Unknown [id number] 2.16.84 0.1.901671.3.579.2.1258 1992 Unknown [id number] 2.16.840 .1.205619.3.579.2.1258 1992 Unknown [id number] 2.16.840 .1.040259.3.579.2.1258 1992 Unknown [id number] 2.16.840 .1.148056.3.579.2.1258 1992 Unknown [id number] 2.16.840 .1.291166.3.579.2.1258 1992 Unknown [id number] 2.16.840 .1.857729.3.579.2.9 1959 Unknown [id number] Unknown [id number] 2.16. 840.1.068520.19 Social History Date Type Detail Facility Sex Assigned At [employer] Other Evaluation note 07-24-2021 Note Date & [...] care instructions given in writting by [facility] Care At Home document. [employer] Other Summary Purpose Family History No Family History Records FoundNo Family History Records Found Advance Directives No Advanced Directives Records FoundNo Advanced Directives Records Found Additional Source Comments REASON FOR VISIT (unrecogniz ed section and content) #29 BODYACHES, H/A, DIARRHEA X 3 DAYS, COVID Provider Visit INFORMATION SOURCE (unrecogn ized section and content) DATE CREATED AUTHOR 02/12/2023 [facility] DATE CREATED AUTHOR 'S ORGANIZ ATION 01/28/[address] [facility] dical Specialists [facility] FOR RECORDS PERTAINING TO PATIENTS WHO ARE [...] BE BASED ON THE PRIMARY CLINICAL RECORDS. [facility] [employer]. provides no warranty or guarantee of the accuracy or completeness of information in this document.
== END 2024-05-17 20:26 | disposition home or self-care (01) ==
LOC: LAB 20:25
PROVIDERS: PCP Family Medicine; Visit Provider Obstetrics & Gynecology
DX: Z01.419 Encounter for gynecological examination (general) (routine) without abnormal findings (principal)
CPT/HCPCS: 88175

== ENCOUNTER 2024-12-29 00:13 | Emergency (ER) | payer OTHER, SELFPAY ==
[2024-12-29 00:16] VITALS: BP 106/81; PULSE 79; TEMP 36.6; O2SAT 94; BMI 25.0
--- OUTSIDE RECORDS SUMMARY | 2024-12-29 00:20 | XMS_ITS | CCD ---
Author Organization [facility] Care Team Providers Care Clinical Data Specialist Name Role Phone Enma Palacios Unavailable SANJAY ., DR VILLALPANDO Attending Unavailable SANJAY ., DR VILLALPANDO Consulting Unavailable SANJAY ., DR VILLALPANDO Primary Care Unavailable SANJAY ., DR VILLALPANDO Admitting Unavailable SANJAYIRASEMA MCWILLIAMS Attending Unavailable AMERICA, RENE Attending Unavailable SANJAY, IRASEMA Attending Unavailable AMERICARENE Attending Unavailable AMERICA, RENE Attending Unavailable SANJAY, IRASEMA Attending Unavailable SANJAY, IRASEMA Attending Unavailable JUVE GONZALEZ Attending Unavailable SANJAY, IRASEMA Attending Unavailable SANJAY, IRASEMA Attending Unavailable SANJAY, IRASEMA Attending Unavailable AMERICA, RENE Attending Unavailable Allergies Allergy Classification Reported Allergen(s) Allergy Type Date of Onset Reaction(s) Facility (1 source) Penicillin V Drug Allergy rash [facility] Other (1 source) sulfaSALAzine Drug Allergy rash [facility] Other (1 source) Penicillin Drug Allergy [facility] (1 source) Sulfonamides (Antibiotic) Drug allergy (disorder) [facility] Medications Current Medications Medication Drug Class(es) [...] 30 to 65on 02-12-2023 . . Normal [facility] Comment on above: Result Comment: Performed at: WB Performed By: #### [id number] #### [facility] [address] [address] [address] Stephie Kelly Age Gdln ACOG Testing 30-65 Normal [facility] Comment on above: Performed By: #### [id number] #### [facility] [address] [address] [address] Stephie Kelly DIAGNOSIS: Comment Normal [facility] Comment on above: Result Comment: NEGATIVE FOR INTRAEPITHE LIAL LESION OR MALIGNANCY. Performed at: WB Performed By: #### [id number] #### [facility] [address] [address] [address] Stephie Kelly HPV Aptima Negative Normal Negative [facility] Comment on above: Result Comment: This nucleic acid amplif ication test detects fourteen high-risk HPV types (16,18,31,33,35,39,45,51,52,56,58,59,66,68) without differentiation. Performed at: =G Performed By: #### [id number] #### [facility] [address] [address] [address] Stephie Kelly HPV Genotype Reflex Comment Normal [facility] Comment on above: Result Comment: Criteria not met, HPV Ge notype not performed. Performed at: WB Performed By: #### [id number] #### [facility] [address] [address] [address] Stephie Kelly Methodology: Comment Normal [facility] Comment on above: Result Comment: This liquid based ThinPr ep(R) pap test was screened with the use of an image guided system. Performed at: WB Performed By: #### [id number] #### [facility] [address] [place] [address] Dr. Stephie Kelly Note: Comment Normal [facility] Comment on above: Result Comment: [...] Performed at: WB Performed By: #### [id number] #### [facility] [address] [address] [address] Stephie Kelly Performed by: Comment Normal [facility] Comment on above: Result Comment: Lor Anthony, Cytot echnologist (ASCP) Performed at: WB Performed By: #### [id number] #### [facility] [address] [address] [address] Stephie Kelly Specimen adequacy: Comment [facility] Comment on above: Result Comment: Satisfactory for evaluat ion. Endocervical and/or squamous metaplastic cells (endocervical component) are present. Performed at: WB Performed By: #### [id number] #### [facility] [address] [address] [address] Stephie Kelly COVID Quick Testingon 2020 Result Negative [facility] Other Vital Signs Date Time Vital Sign Value Performing Clinician Facility 07-24-2021 16:50-0400 Body height 165.1 cm Enma Palacios Other [facility] Other 07-24-2021 16:50-0400 Body mass index (BMI) [Ratio] 25.79 kg/m2 Enma Palacios Other [facility] Other 07-24-2021 16:50-0400 Body temperature 99.1 [degF] Enma Palacios Other [facility] Other 07-24-2021 16:50-0400 Body weight 70.31 kg Enma Palacios Other [facility] Other 07-24-2021 16:50-0400 Respiratory rate 18 /min Enma Palacios Other [facility] Other 07-24-2021 16:50-0400 SaO2% (BldA) [Mass fraction] 99 % Enma Palacios Other [facility] Other Encounters Encounter Date Encounter Type Care Provider Facility Start: 05-17-2024 End: 05-17-2024 ambulatory IRASEMA SANJAY Not Available Start: 01-27-2024 End: 01-27-2024 ambulatory IRASEMA SANJAY Not Available Start: 01-22-2024 End: 01-22-2024 ambulatory JUVE THACKERM Not Available Start: 12-30-2023 End: 12-30-2023 ambulatory [...] outpatient vi sit 15 minutes Enma Palacios [facility] Payers Date Payer Category Payer Unknown [id number] 1990 Unknown [id number] 2.16.84 [id number] 1990 Unknown [id number] 2.16.84 0.1.132366.3.579.2.1258 1992 Unknown [id number] 2.16.84 0.1.525357.3.579.2.1258 1992 Unknown [id number] 2.16.84 0.1.540490.3.579.2.1258 1992 Unknown [id number] 2.16.84 0.1.864565.3.579.2.1258 1992 Unknown [id number] 2.16.84 0.1.411176.3.579.2.1258 1992 Unknown [id number] 2.16.84 0.1.430142.3.579.2.1258 1992 Unknown [id number] 2.16.84 0.1.556237.3.579.2.1258 1992 Unknown [id number] 2.16.840 .1.633514.3.579.2.1258 1992 Unknown [id number] 2.16.840 .1.573458.3.579.2.1258 1992 Unknown [id number] 2.16.840 .1.272764.3.579.2.1258 1992 Unknown [id number] 2.16.840 .1.182672.3.579.2.1258 1992 Unknown [id number] 2.16.840 .1.168296.3.579.2.1259 1959 Unknown [id number] Unknown [id number] 2.16. [id number] Social History Date Type Detail Facility Sex Assigned At [facility] Other Evaluation note 07-24-2021 Note Date & [...] Patient care instructions given in writting by [facility] Care At Home document. [facility] Other Summary Purpose Family History No Family History Records FoundNo Family History Records Found Advance Directives No Advanced Directives Records FoundNo Advanced Directives Records Found Additional Source Comments REASON FOR VISIT (unrecogniz ed section and content) #29 BODYACHES, H/A, DIARRHEA X 3 DAYS, COVID Provider Visit INFORMATION SOURCE (unrecogn ized section and content) DATE CREATED AUTHOR 02/12/2023 [facility] DATE CREATED AUTHOR AUTHOR'S ORGANIZ ATION 05/18/2024 [facility] d[facility] Specialists [facility] FOR RECORDS PERTAINING TO PATIENTS WHO [...] BE BASED ON THE PRIMARY CLINICAL RECORDS. [employer] [facility]. provides no warranty or guarantee of the accuracy or completeness of information in this document.
[2024-12-29 00:33] VITALS: O2SAT 95
--- NOTE | 2024-12-29 00:42 | ED.NAVMDI1 ---
HPI - Nausea/Vomiting/Diarrhea General Chief complaint: Nausea/Vomiting/Diarrhea Stated complaint: DIAHREA,VOMMITING Time Seen by Provider: 12/29/24 00:18 Source: patient Mode of arrival: walk-in Limitations: no limitations History of Present Illness HPI Narrative: This 34-year-old female with no significant medical history presents for evaluation of nausea vomiting and diarrhea that started on Friday. She has had diarrhea since Friday but has not had any vomiting until earlier today. She was seen by her family physician and given a prescription for Zofran and Bentyl. She has only taken 1 dose of that but is still nauseated and having diarrhea. She states she has had more diarrhea episodes than she can count. She is having cramping in her upper abdomen and across her lower abdomen that she states feels like period cramps. Her diarrhea is brown and runny but she denies any blood in it. She denies any recent travel out of country or cruise ship vacations. She denies any chest pain or shortness of breath. She states she does feel weak and has muscle cramps. She does the possibility of because she has an IUD. She states that her recently had diarrhea as well but did not have any vomiting. She has not had any fever but has had a lot of sweating. Related Data Home Medications ?Medication ?Instructions ?Recorded ?Confirmed ondansetron HCl 4 mg tablet mg 12/29/24 Allergies Allergy/AdvReac Type Severity Reaction Status Date / Time levofloxacin (From Levaquin) Allergy Intermediate Cramping Verified 12/29/24 00:22 of the Muscles Penicillins Allergy Unknown Rash Verified 12/29/24 00:22 Sulfa (Sulfonamide Allergy Unknown Rash Verified 12/29/24 00:22 Antibiotics) Review of Systems ROS Status of ROS 10 or more systems reviewed and unremarkable except as noted in history and below PFSH PFSH Social History Little interest or pleasure in doing things: not at all Feeling down, depressed, or hopeless: not at all Exam Narrative Exam Narrative: Vital signs and Nursing Notes reviewed: Patient is afebrile with a normal pulse, normal blood pressure, she has not hypoxic with pulse ox of 95% on room air General: Awake, alert, oriented, nontoxic but uncomfortable appearing female, no respiratory distress HEENT: Normocephalic atraumatic, mucous membranes are slightly dry, no scleral icterus, posterior pharynx is normal in appearance Chest: Lungs are clear to auscultation with good air entry, there is no wheezing rhonchi or rales appreciated no accessory muscle use, patient is speaking in complete sentences-no chest wall tenderness to palpation CVS: Regular rate and rhythm S1-S2, no murmurs rubs or gallops, pulses are brisk and equal bilaterally ABD: Soft, nondistended, nontender, no rebound guarding or rigidity, no reproducible tenderness in the right lower quadrant, right upper quadrant, mild epigastric tenderness, no left lower quadrant tenderness, bowel sounds are hyperactive specifically in the left lower quadrant Extremities: Moving all extremities, no lower extremity tenderness or swelling noted Skin: Normal in appearance without rash,pallor, petechiae or purpura Neuro: No focal deficits Constitutional Vital Signs, click to edit/add: Last Vital Signs Temp 97.9 F 12/29/24 00:16 Pulse 79 12/29/24 00:16 Resp 18 12/29/24 00:16 BP 106/81 12/29/24 00:16 Pulse Ox 95 12/29/24 00:33 O2 Del Method Room Air 12/29/24 00:33 Course Vital Signs Vital signs: Vital Signs Temperature 97.9 F 12/29/24 00:16 Pulse Rate 79 12/29/24 00:16 Respiratory Rate 18 12/29/24 00:16 Blood Pressure 106/81 12/29/24 00:16 Pulse Oximetry 94 L 12/29/24 00:16 Oxygen Delivery Method Room Air 12/29/24 00:16 Temperature 97.9 F 12/29/24 00:16 Pulse Rate 79 12/29/24 00:16 Respiratory Rate 18 12/29/24 00:16 Blood Pressure 106/81 12/29/24 00:16 Pulse Oximetry 95 12/29/24 00:33 Oxygen Delivery Method Room Air 12/29/24 00:33 MDM - Nausea/Vomiting/Diarrhea MDM Narrative Medical decision making narrative: This 34-year-old female presents for evaluation of nausea vomiting and diarrhea. Her symptoms started on Friday mostly with diarrhea. She was having nausea and did not vomit until yesterday. She was seen by her family physician earlier in the day and given a prescription for Zofran and Bentyl. She had only taken 1 dose of these prior to coming to the emergency department. Initially upon arrival she went to the bathroom and was only able to produce several cc of dark-colored urine. Her mucous membranes are dry. Vital signs are stable. She is not having any chest pain or shortness of breath. Her abdomen is soft with mild epigastric tenderness and hyperactive bowel sounds in the left lower quadrant. She received IV fluids, Zofran, Pepcid and Toradol. On reevaluation she states she is feeling somewhat better and able to tolerate clear liquids and saltine crackers. Routine labs are reviewed. She has a normal white count and hemoglobin. Electrolytes are normal but her creatinine is mildly elevated at 1.04. A mild elevation in her total bilirubin of 1.3 likely related to her GI illness. The remainder of her LFTs and lipase are normal. test was negative. Urine is not consistent with infection. Culture will be sent to Man[facility] Messer. She is feeling better on reevaluation and states she is feeling hungry. She was given a popsicle prior to being discharged. I discussed antidiarrheals with her. She wishes to have a prescription for antidiarrheal medication and will be given a prescription for Lomotil but I suggested that she only use it as needed if her symptoms do not resolve over the next 1 to 2 days as it is likely viral in nature. Lab Data Labs: Lab Results 12/29/24 12/29/24 Range/Units 00:23 01:48 WBC 11.3 H (4.0-11.0) 10^3/uL RBC 4.91 (4.20-5.40) 10^6/uL Hgb 15.0 (12.0-16.0) g/dL Hct 44.4 (36.0-48.0) % MCV 90.4 (81.0-99.0) fL MCH 30.5 (26.7-34.0) pg MCHC 33.8 (29.9-35.2) g/dL RDW 12.9 (11.0-15.0) % Plt Count 241 (150-450) 10^3/uL MPV 10.8 (9.5-13.5) fL Seg Neuts % (Manual) 84.0 H (43.0-75.0) Lymphocytes % (Manual) 4.0 L (20.5-60.0) % Atypical Lymphs % (Man) 3.0 % Monocytes % (Manual) 8.0 (1.7-12.0) % Eosinophils % (Manual) 0.0 L (0.9-7.0) % Basophils % (Manual) 1.0 (0.2-2.0) % Neutrophils # (Manual) 9.49 H (1.4-6.5) 10^3/uL Lymphocytes # (Manual) 0.45 L (1.20-3.80) 10^3/uL Abs Atypical Lymphs Man 0.33 Monocytes # (Manual) 0.90 H (0.30-0.80) 10^3/uL Eosinophils # (Manual) 0.00 (0.00-0.70) 10^3/uL Basophils # (Manual) 0.11 H (0.00-0.10) 10^3/uL Toxic Granulation 1+ Sodium 137 (136-145) mmol/L Potassium 3.5 (3.5-5.1) mmol/L Chloride 102 (98-107) mmol/L Carbon Dioxide 21.6 (21.0-32.0) mmol/L Anion Gap 16.9 BUN 14.0 (7.0-18.0) mg/dL Creatinine 1.04 H (0.55-1.02) mg/dL Est GFR ( Amer) >60 (>=60 mL/min/1.73m^2) Est GFR (Non-Af Amer) >60 (>=60 mL/min/1.73m^2) BUN/Creatinine Ratio 13.5 Glucose 154 H (74-106) mg/dL Calcium 8.6 (8.5-10.1) mg/dL Total Bilirubin 1.3 H (0.2-1.0) mg/dL AST 13 L (15-37) U/L ALT 14 (14-59) U/L Alkaline Phosphatase 87 (46-116) U/L Total Protein 7.9 (6.4-8.2) g/dL Albumin 4.0 (3.4-5.0) g/dL Globulin 3.9 g/dL Albumin/Globulin Ratio 1.0 Lipase 19.0 (16.0-77.0) U/L Serum HCG, Qual Negative (NEGATIVE) Urine Color Dk. yellow (YELLOW) Urine Clarity Clear (CLEAR) Urine pH 6.0 (5.0-9.0) Ur Specific [place] >=1.030 A (1.005-1.025) Urine Protein 100 A (NEG/TRACE) mg/dL Urine Glucose (UA) Negative (NEGATIVE) mg/dL Urine Ketones 15 A (NEGATIVE) mg/dL Urine Occult Blood Trace-i (NEGATIVE) Urine Nitrite Negative (NEGATIVE) Urine Bilirubin Small A (NEGATIVE) Urine Urobilinogen 0.2 (0.2-1.0) EU/dL Ur Leukocyte Esterase Negative (NEGATIVE) Urine RBC 0-2 (0-2) #/HPF Urine WBC 2-5 A (NONE SEEN) #/HPF Ur Squamous Epith Cells Few A (NONE/RARE) #/LPF Urine Crystals Seen A (None Seen) #/HPF Amorphous Sediment Few Urine Bacteria Moderate A (NONE SEEN) #/HPF Urine Casts None seen (NONE SEEN) #/LPF Urine Mucus Moderate A (NONE SEEN) Ur Culture Indicated? Yes-[facility] Discharge Plan Discharge Chief Complaint: Nausea/Vomiting/Diarrhea Clinical Impression: Gastroenteritis, Dehydration Patient Disposition: Home, Self-Care Time of Disposition Decision: 02:39 Condition: Good Prescriptions / Home Meds: No Action ondansetron HCl 4 mg tablet Print Language: [place] Instructions: Dehydration (ED), Gastroenteritis (ED), Acute Nausea and Vomiting (ED), Acute Diarrhea (ED) Referrals: Hany Curry MD [Primary Care Provider] - 1 week
[2024-12-29 00:43] LABS: Hematocrit 44.4 % (36.0-48.0); Mean Corpuscular HGB Conc 33.8 g/dL (29.9-35.2); Mean Corpuscular Hemoglobin 30.5 pg (26.7-34.0); Mean Corpuscular Volume 90.4 fL (81.0-99.0); Mean Platelet Volume 10.8 fL (9.5-13.5); Platelet Count 241 10^3/uL (150-450); Red Blood Count 4.91 10^6/uL (4.20-5.40); Red Cell Distribution Width 12.9 % (11.0-15.0); White Blood Count 11.3 10^3/uL (4.0-11.0)
[2024-12-29] MEDS: KETOROLAC TROMETHAMINE 30 MG/ML VIAL 15 MG IVP (00:55)
[2024-12-29] MEDS: 0.9 % SODIUM CHLORIDE 1,000 ML 1000 ML IV ×2 (00:55→01:47)
[2024-12-29] MEDS: FAMOTIDINE/PF 20 MG/2 ML VIAL IV (00:55)
[2024-12-29] MEDS: ONDANSETRON PF 4 MG/2 ML VIAL IV (00:55)
[2024-12-29 00:56] LABS: HCG Qualitative NEGATIVE (NEGATIVE); Internal Control Within Normal Limits
[2024-12-29 00:59] LABS: Alanine Aminotransferase 14 U/L (14-59); Alkaline Phosphatase 87 U/L (46-116); Anion Gap 16.9; Aspartate Amino Transferase 13 U/L (15-37); BUN Creatinine Ratio 13.5; Bilirubin Total 1.3 mg/dL (0.2-1.0); Calcium 8.6 mg/dL (8.5-10.1); Carbon Dioxide 21.6 mmol/L (21.0-32.0); Chloride 102 mmol/L (98-107); Estimated GFR (African America >60 (>=60 mL/min/1.73m^2); Estimated GFR (Non-African Ame >60 (>=60 mL/min/1.73m^2); Globulin 3.9 g/dL; Glucose 154 mg/dL (74-106); Potassium 3.5 mmol/L (3.5-5.1); Sodium 137 mmol/L (136-145); Total Protein 7.9 g/dL (6.4-8.2)
[2024-12-29 01:00] LABS: Atypical Lymphocytes Abs Man 0.33; Basophils Abs Manual 0.11 10^3/uL (0.00-0.10); Lymphocytes Absolute Manual 0.45 10^3/uL (1.20-3.80); Segmented Neut Absolute Manual 9.49 10^3/uL (1.4-6.5); Toxic Granulation 1+
[2024-12-29 02:14] LABS: Bilirubin Urine SMALL (NEGATIVE); Blood Urine TRACE-I (NEGATIVE); Clarity Urine CLEAR (CLEAR); Color Urine DK. YELLOW (YELLOW); Glucose Urine UA NEGATIVE (NEGATIVE); Ketones Urine 15 mg/dL (NEGATIVE); Leukocyte Esterase Urine NEGATIVE (NEGATIVE); Nitrite Urine NEGATIVE (NEGATIVE); Protein Urine 100 mg/dL (NEG/TRACE); Specific Gravity Urine >=1.030 (1.005-1.025); Urobilinogen Urine 0.2 EU/dL (0.2-1.0)
[2024-12-29 02:21] LABS: Amorphous Sediment Urine FEW; Bacteria Urine MODERATE #/HPF (NONE SEEN); Cast Seen? NONE SEEN #/LPF (NONE SEEN); Crystals Seen? Seen #/HPF (None Seen); Mucus Urine MODERATE (NONE SEEN); RBC Urine 0-2 #/HPF (0-2); Squamous Epithelial Cell Urine FEW #/LPF (NONE/RARE); Urine Culture Indicated YES-FRMC
== END 2024-12-29 02:52 | disposition home or self-care (01) ==
PROVIDERS: Emergency Provider Emergency Medicine; PCP Family Medicine
DX: E86.0 Dehydration (principal); K52.9 Noninfective gastroenteritis and colitis, unspecified
CPT/HCPCS: 36415; 80053; 81001; 83690; 84703; 85007; 85027; 87086; 96361; 96374; 96375; 99284; J1885; J2405; J3490

== ENCOUNTER 2025-01-05 09:48 | Outpatient (OUT) | payer OTHER, SELFPAY ==
--- OUTSIDE RECORDS SUMMARY | 2025-01-05 09:51 | XMS_ITS | CCD ---
Author Organization [facility] Care Team Providers Care Shift Supervisor Film Processing Name Role Phone Enma Palacios Unavailable SANJAY ., DR VILLALPANDO Attending Unavailable SANJAY ., DR VILLALPANDO Consulting Unavailable SANJAY ., DR VILLALPANDO Primary Care Unavailable SANJAY ., DR VILLALPANDO Admitting Unavailable SANJAY, IRASEMA Attending Unavailable AMERICA, RENE Attending Unavailable SANJAY, IRASEMA Attending Unavailable AMERICA, RENE Attending Unavailable AMERICA, RENE Attending Unavailable SANJAY, IRASEMA Attending Unavailable SANJAY, IRASEMA Attending Unavailable JUVE GONZALEZ Attending Unavailable SANJAY, IRASEMA Attending Unavailable SANJAY, IRASEMA Attending Unavailable SANJAY, IRASEMA Attending Unavailable AMERICA, RENE Attending Unavailable Heather Rubin DO Attending Provider Heather Rubin Attending Unavailable Heather Rubin Admitting Unavailable Allergies Allergy Classification Reported Allergen(s) Allergy Type Date of Onset Reaction(s) Facility (1 source) Penicillin V Drug Allergy rash [facility] [employer] Other (1 source) sulfaSALAzine Drug Allergy rash [facility] [employer] Other (1 source) Penicillin Drug Allergy [facility] (1 source) Sulfonamides (Antibiotic) Drug allergy (disorder) [facility] (2 sources) Penicillins; Translations: [Penicillins] Allergy to substance 1 [facility] (2 sources) Sulfonamides (Antibiotic); Translations: [Sulfa (Sulfonamide Antibiotics)] Allergy to substance 1 [facility] Medications Current Medications Medication Drug Class(es) Dates [...] Name Value Interpretation Reference Range Facil ity Urine Cultureon 12-29-2024 Bacteria identified Cx Nom (U) 20,000 colonies/ml mixed bacterial skin contaminants 2 Days PERFORMED BY: [place] [address] PATHOLOGIST [employer] TAMRA MORTENSEN M.D. Normal [facility] Comment on above: Performed By: #### CUU #### [address] PAP ACOG PANEL 2: 30 to 65on 02-12-2023 . . Normal [facility] Comment on above: Result Comment: Performed at: WB Performed By: #### [id number] #### [facility] [address] [address] [address] Stephie Kelly Age Gdln ACOG Testing 30-65 Normal [facility] Comment on above: Performed By: #### [id number] #### [facility] [address] [address] [address] Stephie Kelly DIAGNOSIS: Comment Normal [facility] Comment on above: Result Comment: NEGATIVE FOR INTRAEPITHE LIAL LESION OR MALIGNANCY. Performed at: WB Performed By: #### [id number] #### [facility] [address] [address] [address] Stephie Kelly HPV Aptima Negative Normal Negative [facility] Comment on above: Result Comment: This nucleic acid amplif ication test detects fourteen high-risk HPV types (16,18,31,33,35,39,45,51,52,56,58,59,66,68) without differentiation. Performed at: =G Performed By: #### [id number] #### [facility] [address] [place] [address] Dr. Stephie Kelly HPV Genotype Reflex Comment Normal [facility] Comment on above: Result Comment: Criteria not met, HPV Ge notype not performed. Performed at: WB Performed By: #### [id number] #### [facility] [address] [place] [address] Dr. Stephie Kelly Methodology: Comment Normal [facility] Comment on above: Result Comment: This liquid based ThinPr ep(R) pap test was screened with the use of an image guided system. Performed at: WB Performed By: #### [id number] #### [facility] [address] [place] [address] Dr. Stephie Kelly Note: Comment Normal [facility] Comment on above: Result Comment: [...] Performed at: WB Performed By: #### [id number] #### [facility] [address] [place] [address] Dr. Stephie Kelly Performed by: Comment Normal [facility] Comment on above: Result Comment: Lor Anthony, Cytot echnologist (ASCP) Performed at: WB Performed By: #### [id number] #### [facility] [address] [place] [address] Dr. Stephie Kelly Specimen adequacy: Comment Normal [facility] Comment on above: Result Comment: Satisfactory for evaluat ion. Endocervical and/or squamous metaplastic cells (endocervical component) are present. Performed at: WB Performed By: #### [id number] #### [facility] [address] [place] [address] Dr. Stephie Kelly COVID Quick Testingon 2020 Result Negative [employer] Other Vital Signs Date Time Vital Sign Value Performing Clinician Facility 07-24-2021 16:50-0400 Body height 165.1 cm Enma Palacios Other [employer] Other 07-24-2021 16:50-0400 Body mass index (BMI) [Ratio] 25.79 kg/m2 Enma Palacios Other [employer] Other 07-24-2021 16:50-0400 Body temperature 99.1 [degF] Enma Palacios Other [employer] Other 07-24-2021 16:50-0400 Body weight 70.31 kg Enma Palacios Other [employer] Other 07-24-2021 16:50-0400 Respiratory rate 18 /min Enma Palacios Other [employer] Other 07-24-2021 16:50-0400 SaO2% (BldA) [Mass fraction] 99 % Enma Palacios Other [employer] Other Encounters Encounter Date Encounter Type Care Provider Facility Start: 12-29-2024 End: 12-29-2024 ambulatory Heather Rubin [facility] Work Phone: Start: 12-29-2024 End: 12-29-2024 Departed Referred Heather Rubin DO Work Phone: [facility] Start: 05-17-2024 End: 05-17-2024 ambulatory IRASEMA SANJAY Not Available Start: 01-27-2024 End: 01-27-2024 ambulatory IRASEMA SANJAY Not Available Start: 01-22-2024 End: 01-22-2024 ambulatory JUVE NORTHEIM Not Available Start: 12-30-2023 End: 12-30-2023 ambulatory IRASEMA SANJAY Not Available Start: 12-16-2023 End: 12-16-2023 ambulatory IRASEMA SANJAY Not Available Start: 11-26-2023 End: 11-26-2023 ambulatory RENE CROSS Not Available Start: 10-14-2023 End: 10-14-2023 ambulatory IRASEMAMoe HIO Not Available Start: 10-08-2023 End: 10-08-2023 ambulatory RENE CROSS Not Available Start: 10-01-2023 End: 10-01-2023 ambulatory IRASEMA HIO Not Available Start: 09-22-2023 End: 09-22-2023 ambulatory RENE CROSS Not Available Start: 09-08-2023 End: 09-08-2023 ambulatory IRASEMA HIO Not Available Start: 08-25-2023 End: 08-25-2023 ambulatory RENE CROSS Not Available Start: 02-05-2023 End: 02-05-[address] IRASEMA GRACE . Facility: Start: 07-24-2021 Office outpatient vi sit 15 minutes Enma Palacios [facility] Plan of Treatment Date Care Activity Detail Author Start: 12-29-2024 Bacteria identified in Urine by Culture Urine Culture [facility] Start: 12-29-2024 Urine culture [facility] Payers Date Payer Category Payer Self-pay 2022 Unknown [id number] 1990 Unknown [id number] 2.16.84 [id number] 1990 Unknown [id number] 2.16.84 [id number] 1990 Unknown [id number] 2.16.84 0.1.816329.3.579.2.1258 1992 Unknown [id number] 2.16.84 0.1.816895.3.579.2.1258 1992 Unknown [id number] 2.16.84 0.1.511117.3.579.2.1258 1992 Unknown [id number] 2.16.84 0.1.933565.3.579.2.9 1992 Unknown [id number] 2.16.84 0.1.006851.3.579.2.1258 1992 Unknown [id number] 2.16.84 0.1.097973.3.579.2.1258 1992 Unknown [id number] 2.16.840 .1.385056.3.579.2.1258 1992 Unknown [id number] 2.16.840 .1.492422.3.579.2.1258 1992 Unknown [id number] 2.16.840 .1.338258.3.579.2.1258 1992 Unknown [id number] 2.16.840 .1.338854.3.579.2.1258 1992 Unknown [id number] 2.16.840 .1.422723.3.579.2.9 1959 Unknown [id number] Unknown [id number] 2.16. 840.1.042305.19 Social History Date Type Detail Facility Sex Assigned At [employer] Other Tobacco smoking stat [facility] Unknown if ever smoked [facility] Work Phone: Start: 12-30-2024 Sex Female (finding) [facility] Start: 1990 Sex Assigned At Female F [facility] Evaluation note 07-24-2021 Note Date & Type [...] Patient care instructions given in writting by [facility] Care At Home document. [employer] Other Evaluation note Note Date & Type Note Facility Evaluation note No assessment information availa [facility] Work Phone: Summary Purpose Family History No Family History Records FoundNo Family History Records FoundNo Family History Records Found Advance Directives No Advanced Directives Records FoundNo Advanced Directives Records FoundNo Advanced Directives Records Found Additional Source Comments REASON FOR VISIT (unrecogniz ed section and content) #29 BODYACHES, H/A, DIARRHEA X 3 DAYS, COVID Provider Visit INFORMATION SOURCE (unrecogn ized section and content) DATE CREATED AUTHOR 02/12/2023 [facility] DATE CREATED AUTHOR AUTHOR'S ORGANIZ ATION 05/18/2024 [facility] EPIC DATE CREATED AUTHOR AUTHOR'S ORGANIZ ATION 01/01/2025 [facility] Care Teams (unrecognized sec tion and content) Team Status: Inactive Member Role Status Dates Heather Rubin DO Attending Provider Active Start: December 29, 2024 End: December 29, 2024 Goals (unrecognized section and content) Goals may be documented in a n alternate section FOR RECORDS PERTAINING TO PATIENTS WHO ARE [...] BE BASED ON THE PRIMARY CLINICAL RECORDS. [facility] [employer] provides no warranty or guarantee of the accuracy or completeness of information in this document.
--- NOTE | 2025-01-05 09:52 | XR_ITS ---
The [address] [address] Patient Name: LACEY BEAULIEU MRN: [id number] date: 1990 Sex: F Assigned Patient Location: US Current Patient Location: US Accession/Order Number: [id number] Exam Date: 01/05/2025 10:36 Report Date: 01/05/2025 10:40 At the request of: BRENDON VASQUEZ MD Procedure: XR abdomen min 2V ABDOMEN SERIES - 2 views COMPARISON: 01/23/2023 CLINICAL DATA: Gastroenteritis Supine and upright views of the abdomen and pelvis were obtained. There is some air within the stomach. There is air and minimal stool within colon. No dilated small bowel loops are present. No free air or air-fluid levels are seen. There are no soft tissue masses or suspect renal calculi. There is a T-shaped IUD. The bony structures are intact. A pseudoarthrosis is noted at the lumbosacral junction on the left. XR/XR abdomen min 2V IMPRESSION: NO ACUTE PLAIN FILM FINDINGS. Impression dictated by: Brittany Pradhan M.D.01/05/2025 10:40 AM Dictation Location: [place] [address] Electronically authenticated by: [id number] Y Date: 01/05/2025 10:40
--- NOTE | 2025-01-05 09:52 | US_ITS ---
The [address] [address] Patient Name: LACEY BEAULIEU MRN: [id number] date: 1990 Sex: F Assigned Patient Location: US Current Patient Location: Accession/Order Number: [id number] Exam Date: 01/05/2025 10:28 Report Date: 01/05/2025 10:35 At the request of: BRENDON VASQUEZ MD Procedure: US abdomen complete COMPLETE ABDOMINAL ULTRASOUND CLINICAL HISTORY: Gastroenteritis COMPARISON: None The gallbladder is physiologically distended without shadowing calculi, wall thickening or pericholecystic fluid. No intra- or extrahepatic biliary dilatation is evident. The common duct measures 1 - 2 mm. The liver is normal in echogenicity. No intrahepatic masses are seen. There is appropriate hepatopetal flow within the main portal vein. The pancreas shows no significant sonographic abnormality. The right kidney measures 10.1 cm and the left 11.4 cm in craniocaudal dimension. There is no hydronephrosis. The spleen is normal in size and echotexture measuring 10.3 cm in craniocaudal dimension. The IVC is patent. No aortic aneurysm is noted. There is no ascites. US/US abdomen complete IMPRESSION: NEGATIVE ULTRASOUND OF THE ABDOMEN. Impression dictated by: Brittany Pradhan M.D.01/05/2025 10:35 AM Dictation Location: [place] [address] Electronically authenticated by: [id number] Y Date: 01/05/2025 10:35
== END 2025-01-05 09:49 | disposition home or self-care (01) ==
LOC: US 09:48
PROVIDERS: PCP Family Medicine; Visit Provider Family Medicine
DX: K52.9 Noninfective gastroenteritis and colitis, unspecified (principal)
CPT/HCPCS: 74019; 76700

== ENCOUNTER 2025-05-26 14:49 | Outpatient (REF) | payer OTHER, SELFPAY ==
--- OUTSIDE RECORDS SUMMARY | 2024-12-28 10:15 | XMS_ITS ---
Author Organization [facility] [place] Address [address] [place] [address] Care Team Providers Care Executive Chef Name Role Phone Francisco Javier Curry Primary Care Provider Letty Cee [phone] Allergies Allergen (clinical drug ingredient) Drug/Non Drug Allergy documented on EMR Reaction Allergy Type Onset Date Status Levaquin tingling arms/legs Drug Allergy Active Substance with sulfonamide structure and antibacterial mechanism of action (substance) Sulfa Antibiotics hives/rash Drug Allergy Active Penicillin rash/hives Drug Allergy Activ e Results Component Value Reference Range Notes UA DIP NONAUTO WO MICRO (810 02) - IN OFFICE Reviewed date:12/28/2024 02:28:09 PM Interpretation: Performing Lab: Notes/Report: COLOR Yellow CLARITY Clear GLUCOSE NEg BILIRUBIN Neg KETONE Neg SPECIFIC GRAVITY 1.010 BLOOD Neg PH 5 PROTEIN Neg UROBILINOGEN Neg NITRITE Neg LEUKOCYTE ESTERASE Neg REASON FOR VISIT UTI, Low back and abdominal pain, diarrhea, cloudy urine, bloating, Dysuria Medications Medication SIG (Take, Route, Fr equency, Duration) Notes Start Date End Date Status Ondansetron HCl 4 MG 1 tablet Orally BID prn for 5 days 12/28/2024 Active Levsin 0.125 MG 1 tablet as needed O rally every 6 hrs for 5 days 12/28/2024 Active Social History Tobacco Use: Social History Observation Description Date Details (start date - stop date) Never Smoker NA - NA Tobacco Use/Smoking Question Answer Notes Patient is a nonsmoker AUDIT-C (Standard) Question Answer Notes Did you have a drink containing alcohol in the p ast year? No Points 0 Interpretation Negative Vital Signs Blood pressure systolic 120 mm Hg 12/29/19 Blood pressure diastolic 80 mm Hg 025 Height 65 in 12/28/2024 Weight 150.6 lbs 12/28/2024 BMI 25.06 kg/m2 12/28/2024 Encounters Encounter Location Date Provider Diagnosis [facility] [address] [place] [address] 12/28/2024 Letty Cee Dysuria R30.0 and Gastroenteritis K52.9 Assessments Encounter Date Diagnosis (ICD Code) Assessment Notes Treatment Notes Treatment Clinical Notes Section Notes 12/28/2024 Dysuria (ICD-10 - R30.0) UA here negative sx have diminished, gone UA CS if return 12/28/2024 Gastroenteritis (ICD-10 - K52.9) push fluids, electrolytes Plan Of Treatment Medication Medication Name Sig Start Date Stop Date Notes Ondansetron HCl 4 MG 1 tablet Orally BID prn for 5 days Levsin 0.125 MG 1 tablet as needed O rally every 6 hrs for 5 days 12/28/2024 Treatment Notes Assessment Notes Dysuria UA here negative sx have diminished, gone UA CS if return Gastroenteritis push fluids, electro lytes Pending Test Test Name Order Date UA (URINALYSIS, COMPLETE) 12/28/2024 Urine Culture 12/28/2024 Next Appt Details Follow Up: prn, Reason: Progress Notes * Alexa BEAULIEU CDOB:[birth year] (34 yo F)Acc No.[id number]:12/28/2024 Progress Note Patient: Damon BROWNEtlin Aries Provider: Adela Cee ([facility]), RISK CONTROL MANAGER :1990 A ge:34 Y S ex:Female Date:12/28/2024 Address:[address] [place], [place] [id number] Pcp:Francisco Javier Curry Check In:02:14 PM ESTCheck O ut:02:43 PM EST Subjective: * Chief Complaints: * 1 . UTI. 2. Low back and abdominal pain, diarrhea, cloudy urine, bloating, Dysuria. * HPI: G eneral: sx UTI maybe 4-5 days cloudy urine, low back pain, burning? and lower abdominal pain stabbing pain last night and felt really bloated, had diarrhea nausea no vomiting still some diarrhea today. * ROS: G eneral/Constitutional: Fever d enies. H eadache d enies. W eight loss?denies. O phthalmologic: Discharge d enies. E ye Pain d enies. I tching and redness d enies. E NT: Nasal discharge d enies. N lewis congestion d enies.?Sore throat d enies. C ardiovascular: Chest tightness/ heavy pressure d enies. R apid heart rate d enies. S welling of extremities d enies. C hest pain d enies. ? R espiratory: Productive cough d enies. C hest pain d enies. C ough d enies. S hortness of breath d enies. W heezing d enies. ? G astrointestinal: Abdominal pain c ramping lower abdomen, feels bloated. C onstipation d enies. D ecreased appetite d enies. D iarrhea a dmits. N ausea a dmits. V omiting d enies. G enitourinary: Urinary incontinence d enies. P ainful urination d enies. M usculoskeletal: Back pain d enies. N kiesha pain d enies. M uscle aches d enies. S kin: Rash d enies. S kin lesion(s) d enies. ? * Active Problem List Z00.00 Well adult Modified On:06/14/2024W/U Status:confirmed * Medical History: C OVID-19, Paresthesia of right leg, Low back pain, Insomnia. * Surgical History: d enies . * Hospitalization/Major Diagno stic Procedure: d enies . * Family History: F ather: alive, diagnosed with Diabetes mellitus without mention of complication, type II or unspecified type, not stated as uncontrolled, Unspecified essential hypertension. M other: alive, diagnosed with Diabetes mellitus without mention of complication, type II or unspecified type, not stated as uncontrolled, Unspecified essential hypertension. B silviaer(s): alive. D oksana(s): alive. 2 brother(s) . 2 daughter(s) - healthy. . Family of cancer- different kinds. * Social History: T obacco Use: T obacco Use/Smoking P atient is a n onsmoker D rug/Alcohol: A REMI-C (Standard) D id you have a drink containing alcohol in the past year? N o P oints 0 I nterpretation N egative * Medications: D iscontinued Cefdinir 300 MG Capsule 2 capsule Orally once a day , Discontinued Pyridium(Phenazopyridine HCl) 200 MG Tablet 1 tablet after meals Orally Three times a day , Medication List reviewed and reconciled with the patient * Allergies: S ulfa Antibiotics: hives/rash - Allergy, Penicillin: rash/hives - Allergy, Levaquin: tingling arms/legs. Objective: * Vitals: W t:150.6lbs, Ht: 65 in, BP:120/80mm Hg, BMI:25.06Index, Ht-cm: 165.1 cm, Wt-k.31 kg. * Examination: G eneral Examinations: GENERAL APPEARANCE: a lert and oriented, i n no acute distress. EYES: c onjunctiva normal, sclera non-icteric. NOSE: n ormal external appearance. LUNGS: c lear to auscultation bilaterally. CARDIO: r egular rate and rhythm, S1, S2 normal. ABDOMEN: s oft, nontender. MUSCULOSKELETAL: G ait and station normal. SKIN: w arm and dry. Assessment: * Assessment: 1. G astroenteritis - K52.9 (Primary) 2 . D ysuria - R30.0 Plan: * Treatment: 2. D ysuria L AB: UA (URINALYSIS, COMPLETE) L AB: Urine Culture L AB: UA DIP NONAUTO WO MICRO (17422) - IN OFFICE (Collection Date & Time - 12/28/2024) Notes: UA here negative sx have diminished, gone UA CS if return * Labs: * L ab: UA DIP NONAUTO WO MICRO (45264) - IN OFFICE (Collection Date & Time - 12/28/2024) Value Reference Range C OLOR Yellow * C LARITY Clear * G LUCOSE NEg * B ILIRUBIN Neg * K ETONE Neg * S PECIFIC GRAVITY 1.010 * B LOOD Neg * P H 5 * P ROTEIN Neg * U ROBILINOGEN Neg * N ITRITE Neg * L EUKOCYTE ESTERASE Neg * Procedure Codes: 8 1002 URINALYSIS WO MICRO * Preventive Medicine: Screenings/Counseling: B SD ACTION PLAN Above Normal BMI Follow-up D ietary management education, guidance, and counseling * Follow Up: p rn * * Electronically signed by Argelia Cee , PROGRAM DIRECTOR, ENERGY CONSULTANT.RISK CONTROL MANAGER.[id number] on 12/30/2024 at 12:46 PM EDT Sign off status: Completed Visit Status: C HK (Check Out) true * Provider: Adela Cee (TT[facility]), RISK CONTROL MANAGER Date: 0 12/28/2024 Generated for Printi ng/Faxing/eTransmitting on: 0 05/26/2025 02:55 PM EDT History and Physical Notes * HPI (History of Present Illness) Category Sub-Category Detail Notes Category Not es General sx UTI maybe 4-5 days cloudy urine, low back pain, burning and lower abdominal pain stabbing pain last night and felt really bloated, had diarrhea nausea no vomiting still some diarrhea today Examination Category Sub-Category Detail Notes Category Not es General Examinations GENERAL APPEARANCE: alert a nd oriented, in no acute distress EYES: conjunctiva normal, sclera non-icteric EARS: NOSE: normal external appe arance THROAT: CARDIO: regular rate and rhy thm, S1, S2 normal LUNGS: clear to auscultatio n bilaterally ABDOMEN: soft, nontender SKIN: warm and dry BACK: MUSCULOSKELETAL: Gait and station nor mal LYMPH NODES:
--- OUTSIDE RECORDS SUMMARY | 2024-12-31 09:50 | XMS_ITS ---
Author Organization [facility] [place] Address [address] [place] [address] Care Team Providers Care Cotton Program Technician Name Role Phone Francisco Javier Curry Primary Care Provider [phone] REASON FOR VISIT update Encounters Encounter Location Date Provider Diagnosis [facility] [address] [facility] [address] 12/31/2024 Francisco Javier Curry Gastroenteritis K52 .9 Assessments Encounter Date Diagnosis (ICD Code) Assessment Notes Treatment Notes Treatment Clinical Notes Section Notes 12/31/2024 Gastroenteritis (ICD-10 - K52.9) Plan Of Treatment Pending Test Test Name Order Date US ABD 12/31/2024 XR ABD FLAT_UP 12/31/2024 Progress Notes * Alexa BEAULIEU CDOB:[birth year] (34 yo F)Acc No.[id number]:12/31/2024 Patient: Ralf Alexa WILSON :1990 A ge:34 Y S ex:Female Address:[address] [place] [id number] Subjective: * Chief Complaints: * U pdate * Medical History: * Surgical History: * Hospitalization/Major Diagno stic Procedure: * Medications: Objective: * Vitals: * Physical Examination: Assessment: * Assessment: 1. G astroenteritis - K52.9 (Primary) Plan: * Treatment: * Procedure Codes: * true * Date: Generated for Marline kohler/David/eTransmitting on: 0 05/26/2025 02:55 PM EDT
--- OUTSIDE RECORDS SUMMARY | 2025-01-05 15:43 | XMS_ITS ---
Author Organization [facility] in [place] Address [address] [place] [address] Care Team Providers Care Supervisor Irrigation Name Role Phone Francisco Javier Curry Primary Care Provider REASON FOR VISIT Results Encounters Encounter Location Date Provider Diagnosis [facility] [address] [place] [address] 01/05/2025 Francisco Javier Curry Plan Of Treatment No Information Progress Notes * Alexa BEAULIEU CDOB:[birth year] (34 yo F)Acc No.[id number]:01/05/2025 Patient: Ralf Alexa WILSON :1990 A ge:34 Y S ex:Female Address:[address] [place] [phone] * true * Date: Generated for Marline kohler/David/eTransmitting on: 0 05/26/2025 01:44 PM EDT
--- OUTSIDE RECORDS SUMMARY | 2025-05-26 10:00 | XMS_ITS | Encounter Summary ---
Author Organization [facility] Address [address] [place] [facility] [place] [address] Care Team Providers Care Rn Ent Name Role Phone Hany Curry MD Primary Care Provider [phone] Reason for Visit * Reason Comments Well Women Visit Encounter Details Date Type Department Care Team ( Contact Info) Description 05/26/2025 10:00 AM EDT Office Visit [facility] [address] [phone] Tez Pompa DO [address] [place] [address] Well woman exam with routine gynecological exam; Burning with urination; Urinary frequency Social History Tobacco Use Types Packs/Day Years Used Date Smoking Tobacco: Never Smokeless Tobacco: Never Alcohol Use Standard Drinks/Week Comments Never 0 (1 standard drink = 0.6 oz pur e alcohol) Comments No Sex and Gender Information Value Date Recorded Sex Assigned at Not on file Legal Sex Female 11:47 PM EDT Gender Identity Not on file Sexual Orientation Not on file documented as of this encounter Last Filed Vital Signs Vital Sign Reading Time Taken Comments Blood Pressure 120/70 05/26/2025 10:30 AM EDT Pulse - - Temperature - - Respiratory Rate - - Oxygen Saturation - - Inhaled Oxygen Concentration - - Weight 71.1 kg (156 lb 12.8 oz) 025 10:30 AM EDT Height - - Body Mass Index 26.09 05/17/2024 10:29 AM EDT documented in this encounter Plan of Treatment Upcoming Encounters Date Type Department Care Team ([facility] Contact Info) Description 06/01/2026 10:00 AM EDT Procedure Visit [facility] [address] [place] [address] Tez Pompa DO [address] [place], [place] [address] [address] Scheduled Orders Name Type Priority Associated Diagnoses Orde r Schedule Pap Smear Pathology and Cytology Routine Well woman exam with routine gynecological exam Ordered: 05/26/2025 HPV DNA probe, amplified Microbiology Routine Well woman exam with routine gynecological exam Ordered: 05/26/2025 documented as of this encounter Procedures Procedure Name Priority Date/Time Associated Diagnosis Comments POCT URINALYSIS DIPSTICK Routine 05/26/2025 10:39 AM EDT Burning with urination Urinary frequency documented in this encounter Results * POCT urinalysis dipstick manually resulted (05/26/2025 10:39 AM EDT) Color, UA Colorless Clarity, UA Clear Glucose, UA Negative Negative - 2000(110) ++++ mg/dL Bilirubin, UA Negative Negative - 4(70) +++ mg/dL Ketones, UA Negative Negative - 160(16) ++++ mg/dL Spec Grav, UA 1.010 1 - 1.03 Blood, UA Negative Negative - 50 Eduard/mcL pH, UA 6.0 5 - 9 Protein, UA Negative Negative - 2000(20) ++++ mg/dL Urobilinogen, UA 1.0 0.2 - 12 mg/dL Leukocytes, UA Negative Negative - 500+++ Aguila/mcL Nitrite, UA Negative Negative - Positive Urine 05/26/2025 10:3 9 AM EDT Tez Pompa DO POINT OF CARE TEST ENTER/EDIT OR DERABLES Final Result documented in this encounter Visit Diagnoses Diagnosis Well woman exam with routine gynecological exam Routine gynecological examination Burning with urination Dysuria Urinary frequency documented in this encounter Care Teams Rn Ent Relationship Specialty Start Date End Date Hany Curry MD [address] [place] [address] PCP - General Family Medicine 03/21/23 documented as of this encounter
--- OUTSIDE RECORDS SUMMARY | 2025-05-26 14:55 | XMS_ITS | Encounter Summary ---
Author Organization [facility] Address [address] [facility] [place] [address] Care Team Providers Care Commodity Analyst Name Role Phone Hany Curry MD Primary Care Provider [phone] Encounter Details Date Type Department Care Team (Late Contact Info) Description 12/17/2023 Clinisync Result Encounter [facility] External Department Unsolicited Tez Pompa DO [address] [place] [address] Social History Tobacco Use Types Packs/Day Years [...] on file documented as of this encounter Plan of Treatment Upcoming Encounters Date Type Department Care Team (Late st Contact Info) Description 06/01/2026 10:00 AM EDT Procedure Visit [facility] [address] [place] [phone] Tez Pompa DO [address] [place] [address] documented as of this encounter Procedures Procedure Name Priority Date/Time Associated Diagnosis Comments US PELVIS TRANSVAGINAL 12/17/2023 11:09 AM EDT documented in this encounter Results * US PELVIS TRANSVAGINAL (12/17/2023 11:09 AM EDT) Anatomical Region Laterality Modality Other 12/17/2023 11:0 9 AM EDT Narrative 12/17/2023 11:12 AM EDT [address] [address] Ultrasound Report Signed Patient: LACEY BEAULIEU MR#: [id number] : 1990 Acct:[id number] Age/Sex: 33 / F ADM Date: 12/17/23 Loc: US Attending Dr: Tez Pompa D.O. Ordering Physician: Tez Pompa D.O. Date of Service: 12/17/23 Procedure(s): US pelvis transvaginal Accession Number(s): [id number] cc: Tez Pompa D.O.; Hany Curry M.D. [address] [address] Patient Name: LACEY BEAULIEU MRN: [id number] date: 1990 Sex: F Assigned Patient Location: US Current Patient Location: US Accession/Order Number: [id number] Exam Date: 12/17/2023 10:30 Report Date: 12/17/2023 11:09 At the request of: TEZ POMPA Procedure: US pelvis transvaginal EXAM: Pelvic ultrasound HISTORY: . pelvic cramping R10.2 . COMPARISON: None. TECHNIQUE: Transvaginal scanning was performed FINDINGS: Scanning of the pelvis demonstrates uterus to measure 8.6 x 3.8 x 5.1 cm. Uterus is anteverted. Endometrial complex measures 3 mm. Linear hyperechoic structure is noted within the endometrial cavity of the lower uterine segment. Right ovary measures 2.6 x 2.7 x 1.7 cm. Color-flow is noted. No masses are noted. Left ovary measures 3.2 x 1.9 x 2.3 cm. Color-flow is noted. Follicles are noted. No fluid is noted in the cul-de-sac. US/US pelvis transvaginal IMPRESSION: 1. Anteverted uterus. 2. Endometrial complex measures 3 mm. 3. IUD is noted with the IUD within the lower uterine segment. The uppermost portion of the IUD lies within the lower uterine segment and extends inferiorly. The IUD does not extend into the endometrial cavity of the fundus of uterus. Electronically authenticated by: STEPHANE WILCOX Date: 12/17/2023 11:09 Dictated By: Stephane Wilcox M.D. Signed By: 12/17/23 1112 DD/ 1109 TD/TT: Eating Disorder Specialist: Procedure Note Radiology, Radiologist, MD - 12/17/2023 [place] [address] Ultrasound Report Signed Patient: LACEY BEAULIEU CMR#: [id number] : 1990Acct:[id number] Age/Sex: 33 / FADM Date: 12/17/23 Loc: US Attending Dr: Tez Pompa D.O. Ordering Physician: Tez Pompa D.O. Date of Service: 12/17/23 Procedure(s): US pelvis transvaginal Accession Number(s): [id number] cc: Tez Pompa D.O.; Hany Curry M.D. The [place] [id number] Patient Name: LACEY BEAULIEU MRN: [id number] date: 1990 Sex: F Assigned Patient Location: US Current Patient Location: US Accession/Order Number: [id number] Exam Date: 12/17/2023 10:30 Report Date: 12/17/2023 11:09 At the request of: TEZ POMPA Procedure: US pelvis transvaginal EXAM: Pelvic ultrasound HISTORY: . pelvic cramping R10.2 . COMPARISON: None. TECHNIQUE: Transvaginal scanning was performed FINDINGS: Scanning of the pelvis demonstrates uterus to measure 8.6 x 3.8x 5.1 cm. Uterus is anteverted. Endometrial complex measures 3 mm. Linear hyperechoic structure is noted within the endometrial cavity of the lower uterine segment. Right ovary measures 2.6 x 2.7 x 1.7 cm. Color-flow is noted. No massesare noted. Left ovary measures 3.2 x 1.9 x 2.3 cm. Color-flow is noted. Follicles are noted. No fluid is noted in the cul-de-sac. US/US pelvis transvaginal IMPRESSION: 1. Anteverted uterus. 2. Endometrial complex measures 3 mm. 3. IUD is noted with the IUD within the lower uterine segment. Theuppermost portion of the IUD lies within the lower uterine segment and extends inferiorly. The IUD does not extend into the endometrial cavity of thefundus of uterus. Electronically authenticated by: STEPHANE WILCOX Date: 12/17/2023 11:09 Dictated By: Stephane Wilcox M.D. Signed By:12/17/23 1112 DD/ 1109 TD/TT: Eating Disorder Specialist: us Tez Peña DO [facility] Final Result documented in this encounter Visit Diagnoses Not on filedocumented in this encounter Care Teams Commodity Analyst Relationship Specialty Start Date End Date Hany Curry MD [address] [place] [phone] PCP - General Family Medicine 03/21/23 documented as of this encounter
--- OUTSIDE RECORDS SUMMARY | 2025-05-26 14:55 | XMS_ITS | Encounter Summary ---
Author Organization [facility] Address [address] [facility] [place] [address] Care Team Providers Care Payment Specialist Name Role Phone Hany Curry MD Primary Care Provider [phone] Encounter Details Date Type Department Care Team ([facility] Contact Info) Description 05/28/2023 Abstract [facility] [address] [place] [phone] Tez Pompa DO [address] [place] [address] [place], [place] [address] Social History Tobacco Use Types Packs/Day Years Used Date Smoking Tobacco: Never Smokeless Tobacco: Never Alcohol Use Standard Drinks/Week Comments Never 0 (1 standard drink = 0.6 oz pur e alcohol) Comments Yes Sex and Gender Information Value Date Recorded Sex Assigned at Not on file Legal Sex Female 11:47 PM EDT Gender Identity Not on file Sexual Orientation Not on file documented as of this encounter Plan of Treatment Upcoming Encounters Date Type Department Care Team ([facility] Contact Info) Description 06/01/2026 10:00 AM EDT Procedure Visit [facility] [address] [place] [phone] Tez Pompa DO [address] [place] [phone] documented as of this encounter Visit Diagnoses Not on filedocumented in this encounter Care Teams Payment Specialist Relationship Specialty Start Date End Date Hany Curry MD [address] [place] [phone] PCP - General Family Medicine 03/21/23 documented as of this encounter
--- OUTSIDE RECORDS SUMMARY | 2025-05-26 14:55 | XMS_ITS | Clinical Summary ---
Author Organization [facility] Address [address] [place] [address] Care Team Providers Care Plant Maintenance Worker Name Role Phone Hany Curry MD Primary Care Provider [phone] Allergies Active Allergy Reactions Criticality Noted Date Comments Penicillins Hives 03/21/2023 Sulfa Antibiotics Hives 03/21/2023 Medications Cetirizine HCl (ZYRTEC PO) Take by mouth Active nitrofurantoin, macrocrystal-mo nohydrate, (Macrobid) 100 MG capsuleIndicati ons:Burning with urination,Urina ry frequency Take 1 capsule (100 mg) by mouth in the morning and 1 capsule (100 mg) before bedtime. Do all this for 7 days. 14 capsule 05/26/2025 Active Hospital, Clinic, or Other Facility Administered Medication Ordered Dose Route Frequency Start Date End Date Status Levonorgestrel intrauterine device 52 mgIndications:Encounter for IUD insertion 52 mg IU Continuous 12/16/2023 12/14/2028 Active Levonorgestrel intrauterine device 52 mgIndications:Encounter for insertion of Mirena IUD 52 mg IU Continuous 12/30/2023 12/28/2028 Active Active Problems No known active problems Encounters Date Type Department Care Team Description 05/26/2025 10:00 AM EDT Office Visit [facility] [address] [place] [address] [place] [phone] Tez Pompa, DO Well woman exam with routine gynecological exam; Burning with urination; Urinary frequency 05/26/2025 Bamboo flowsheet [facility] [address] [place] [phone] Tez Pompa DO from Last 3 Months Family History Relation Name Status Comments Daughter Alive Social History Tobacco Use Types Packs/Day Years Used Date Smoking Tobacco: Never Smokeless Tobacco: Never Tobacco Cessation:Counseling Given: Not Answered Alcohol Use Standard Drinks/Week Comments Never 0 (1 standard drink = 0.6 oz pur e alcohol) Comments No Sex and Gender Information Value Date Recorded Sex Assigned at Not on file Legal Sex Female 11:47 PM EDT Gender Identity Not on file Sexual Orientation Not on file Last Filed Vital Signs Vital Sign Reading Time Taken Comments Blood Pressure 120/70 05/26/2025 10:30 AM EDT Pulse - - Temperature - - Respiratory Rate - - Oxygen Saturation - - Inhaled Oxygen Concentration - - Weight 71.1 kg (156 lb 12.8 oz) 025 10:30 AM EDT Height 165.1 cm (5' 5 ) 05/17/2024 10:2 9 AM EDT Body Mass Index 26.09 05/17/2024 10:29 AM EDT Plan of Treatment Upcoming Encounters Date Type Department Care Team (Late st Contact Info) Description 06/01/2026 10:00 AM EDT Procedure [facility] [address] [facility] [place] [phone] Tez Pompa DO [address] [facility] [place] [address] Procedures Procedure Name Priority Date/Time Associated Diagnosis Comments POCT URINALYSIS DIPSTICK Routine 05/26/2025 10:39 AM EDT Burning with urination Urinary frequency from Last 3 Months Results * POCT urinalysis dipstick manually resulted [...] CARE TEST ENTER/EDIT OR DERABLES Final Result from Last 3 Months Insurance [employer] Care Teams Plant Maintenance Worker Relationship Specialty Start Date End Date Hany Curry MD [address] [place] [address] PCP - General Family Medicine 03/21/23
--- OUTSIDE RECORDS SUMMARY | 2025-05-26 14:55 | XMS_ITS | Encounter Summary ---
Author Organization [facility] Address [address] [facility] [place] [address] Care Team Providers Care Housing Project Manager Name Role Phone Hany Curry MD Primary Care Provider [phone] Encounter Details Date Type Department Care Team (Late Contact Info) Description 03/26/2023 Abstract [facility] [address] [place] [phone] Tez Pompa DO [address] [place], [place] [address] Social History Tobacco Use Types Packs/Day Years Used Date Smoking Tobacco: Never Assessed Comments Yes Sex and Gender Information Value Date Recorded Sex Assigned at Not on file Legal Sex Female 11:47 PM EDT Gender Identity Not on file Sexual Orientation Not on file documented as of this encounter Plan of Treatment Upcoming Encounters Date Type Department Care Team (Late Contact Info) Description 06/01/2026 10:00 AM EDT Procedure Visit [facility] [address] [place] [phone] Tez Pompa DO [address] [place] [id number] documented as of this encounter Visit Diagnoses Not on filedocumented in this encounter Care Teams Housing Project Manager Relationship Specialty Start Date End Date Hany Curry MD [address] [facility] [place] [address] PCP - General Family Medicine 03/21/23 documented as of this encounter
--- OUTSIDE RECORDS SUMMARY | 2025-05-26 14:55 | XMS_ITS | Encounter Summary ---
Author Organization [facility] Address [address] [facility] [place] [address] Care Team Providers Care Optical Glass Inspector Name Role Phone Hany Curry MD Primary Care Provider [phone] Encounter Details Date Type Department Care Team ([facility] Contact Info) Description 06/04/2023 Abstract [facility] [address] [facility] [address] Debbie Tavares PA [address] [facility] [address] [place], [place] [address] Social History Tobacco Use Types Packs/Day Years [...] Upcoming Encounters Date Type Department Care Team ([facility] Contact Info) Description 06/01/2026 10:00 AM EDT Procedure Visit [facility] [address] [facility] [address] Tez Pompa DO [address] [facility] [address] [place], [facility] documented as of this encounter Visit Diagnoses Not on filedocumented in this encounter Care Teams Optical Glass Inspector Relationship Specialty Start Date End Date Hany Curry MD [address] [place] [phone] PCP - General Family Medicine 03/21/23 documented as of this encounter
--- OUTSIDE RECORDS SUMMARY | 2025-05-26 14:55 | XMS_ITS | Encounter Summary ---
Author Organization [facility] Address [address] [place] [facility] [place] [address] Care Team Providers Care Variety Lathe Operator Name Role Phone Hany Curry MD Primary Care Provider [phone] Encounter Details Date Type Department Care Team ([facility] Contact Info) Description 05/19/2023 Abstract [facility] [address] [facility] [address] Debbie Tavares PA [address] [facility] [address] [place], [place] [address] Social History Tobacco Use Types Packs/Day Years [...] Upcoming Encounters Date Type Department Care Team ([facility] Contact Info) Description 06/01/2026 10:00 AM EDT Procedure Visit [facility] [address] [facility] [address] Tez Pompa DO [address] [facility] [address] [place], [facility]11 documented as of this encounter Visit Diagnoses Not on filedocumented in this encounter Care Teams Variety Lathe Operator Relationship Specialty Start Date End Date Hany Curry MD [address] [place] [phone] PCP - General Family Medicine 03/21/23 documented as of this encounter
--- OUTSIDE RECORDS SUMMARY | 2025-05-26 14:55 | XMS_ITS | Encounter Summary ---
Author Organization [facility] Address [address] [place] [facility] [place] [address] Care Team Providers Care Cement Finisher Helper Name Role Phone Hany Curry MD Primary Care Provider [phone] Encounter Details Date Type Department Care Team (Late Contact Info) Description 05/26/2025 Bamboo flowsheet [facility] [address] [place] [phone] Tez Pompa DO [address] [place] [address] [address] [place], [place] [address] Social History Tobacco Use Types Packs/Day Years [...] AM EDT Procedure Visit [facility] [address] [facility] [place] [phone] Tez Pompa DO [address] [place], [place] [phone] documented as of this encounter Visit Diagnoses Not on filedocumented in this encounter Care Teams Cement Finisher Helper Relationship Specialty Start Date End Date Hany Curry MD [address] [place] [phone] PCP - General Family Medicine 03/21/23 documented as of this encounter
--- OUTSIDE RECORDS SUMMARY | 2025-05-26 14:55 | XMS_ITS | Encounter Summary ---
Author Organization [facility] Address [address] [facility] [place] [address] Care Team Providers Care International Recruiter Name Role Phone Hany Curry MD Primary Care Provider [phone] Encounter Details Date Type Department Care Team (Late Contact Info) Description 05/25/2024 Orders Only [facility] [address] [place] [phone] Otilia Cordova MA [address] [place] [address] Social History Tobacco Use Types Packs/Day Years [...] AM EDT Procedure Visit [facility] [address] [place] [phone] Tez Pompa DO [address] [place], [place] [phone] documented as of this encounter Procedures Procedure Name Priority Date/Time Associated Diagnosis Comments PAP SMEAR Routine 05/17/2024 12:00 AM EDT documented in this encounter Results * Pap Smear (05/17/2024 12:00 AM EDT) Swab Cervical swab / Unknown us Tez Pompa DO LAB CYTOLOGY ORDERABLES Final Re sult EXTERNAL LAB documented in this encounter Visit Diagnoses Not on filedocumented in this encounter Care Teams International Recruiter Relationship Specialty Start Date End Date Hany Curry MD [address] [place] [phone] PCP - General Family Medicine 03/21/23 documented as of this encounter
--- OUTSIDE RECORDS SUMMARY | 2025-05-26 14:55 | XMS_ITS | Patient Health Record ---
Author Organization [facility] [place] Address [address] [place] [address] Care Team Providers Care Manager Of Financial Reporting Name Role Phone Francisco Javier Vasquez Primary Care Provider Letty Cee [phone] Allergies Allergen (clinical drug ingredient) Drug/Non Drug Allergy documented on EMR Reaction Allergy Type Onset Date Status Levaquin tingling arms/legs Drug Allergy Active Substance with sulfonamide structure and antibacterial mechanism of action (substance) Sulfa Antibiotics hives/rash Drug Allergy Active Penicillin rash/hives Drug Allergy Activ e Results Component Value Reference Range Notes UA (Urinalysis, Dipstix only - w/o micro) Reviewed date:12/29/2024 10:56:59 AM Interpretation: Performing Lab: Notes/Report: GLUCOSE - 0 - 133 MG/DL ALBUMIN - NEG - NEG MG/DL BILIRUBIN - NEG - NEG MG/DL SPECIFIC GRAVITY 1.000 1.001 - 1.035 KETONES - NEG - NEG MG/DL BLOOD, UR - PH, UR 5.0 5 - 9 UROBILNOGEN 0.2 0.2 - 1 MG/DL NITRITE - NEG - NEG ESTERASE ([place]) - NEG - NEG MG/DL UA (URINALYSIS), COMPLETE (8 1000) - IN OFFICE Reviewed date:12/29/2024 10:56:59 AM Interpretation: Performing Lab: Notes/Report: COLOR yellow YELLOW - DELORES CLARITY clear CLEAR - CLEAR GLUCOSE NEG NEG - NEG MG/DL BILIRUBIN NEG NEG - NEG KETONES NEG NEG - NEG MG/DL SPECIFIC GRAVITY 1.015 1.001 - 1.035 BLOOD, UR TRACE NEG - NEG MG/DL PH, UR 7 5.0 - 9.0 UROBILINOGEN NEG 0.2 - 1.0 MG/DL NITRITE NEG NEG - NEG PROTEIN POS ESTERASE ([place]) POS NEG - NEG UA DIP NONAUTO WO MICRO (810 02) - IN OFFICE Reviewed date:12/28/2024 02:28:09 PM Interpretation: Performing Lab: Notes/Report: COLOR Yellow CLARITY Clear GLUCOSE NEg BILIRUBIN Neg KETONE Neg SPECIFIC GRAVITY 1.010 BLOOD Neg PH 5 PROTEIN Neg UROBILINOGEN Neg NITRITE Neg LEUKOCYTE ESTERASE Neg XR abdomen min 2V Reviewed date:01/05/2025 07:44:25 PM Interpretation: Performing Lab: Notes/Report: Source Facility: [place] [address] XRay Report Signed Patient: LACEY BEAULIEU MR#: [id number] : 1990 Acct:[id number] Age/Sex: 34 / F ADM Date: 01/05/25 Loc: US Attending Dr: Brendon Vasquez M.D. Ordering Physician: Brendon Vasquez M.D. Date of Service: 01/05/25 Procedure(s): XR abdomen min 2V Accession Number(s): [id number] cc: Brendon Vasquez M.D. [place] [address] Patient Name: LACEY BEAULIEU MRN: [facility]:[id number] date: 1990 Sex: F Assigned Patient Location: Current Patient Location: US Accession/Order Number: [id number] Exam Date: 01/05/2025 10:36 Report Date: 01/05/2025 10:40 At the request of: BRENDON VASQUEZ MD Procedure: XR abdomen min 2V ABDOMEN SERIES - 2 views COMPARISON: 01/23/2023 CLINICAL DATA: Gastroenteritis Supine and upright views of the abdomen and pelvis were obtained. There is some air within the stomach. There is air and minimal stool within colon. No dilated small bowel loops are present. No free air or air-fluid levels are seen. There are no soft tissue masses or suspect renal calculi. There is a T-shaped IUD. The bony structures are intact. A pseudoarthrosis is noted at the lumbosacral junction on the left. XR/XR abdomen min 2V IMPRESSION: NO ACUTE PLAIN FILM FINDINGS. Impression dictated by: Brittany Pradhan M.D.01/05/2025 10:40 AM Dictation Location: [place] [address] Electronically authenticated by: [id number] Y Date: 01/05/2025 10:40 Dictated By: Brittany Pradhan M.D. Signed By: 01/05/25 1042 DD/ 1040 TD/TT: Blower Operator: [place] [address] XRay Report Signed Patient: LACEY BEAULIEU MR#: [id number] : 1990 Acct:[id number] Age/Sex: 34 / F ADM Date: 01/05/25 Loc: US Attending Dr: Nahum Vasquez M.D. Ordering Physician: Brendon Vasquez M.D. Date of Service: 01/05/25 Procedure(s): XR abdomen min 2V Accession Number(s): [id number] cc: Brendon Vasquez M.D. [place] [id number] Patient Name: LACEY BEAULIEU MRN: [id number] date: 1990 Sex: F Assigned Patient Location: Current Patient Location: US Accession/Order Numb er: [id number] Exam Date: 01/05/2025 10:36 Report Date: 01/05/2025 10:40 At the request of: BRENDON VASQUEZ MD Procedure: XR abdome n min 2V ABDOMEN SERIES - 2 views COMPARISON: 01/23/2023 CLINICAL DATA: Gastroenteritis Supine and upright views of the abdomen and pelvis were obtained. There is some air within the stomach. There is air and minimal stool within colon. No dilated small bowel loops are present. No free air or air-fluid levels are seen. There are no s oft tissue masses or suspect renal calculi. There is a T-shaped IUD. The [place] structures are intact. A pseudoarthrosis is noted at the lumbosacral junction on the left. XR/XR abdomen min 2V IMPRESSION: NO ACUTE PLAIN FILM FINDINGS. Impression dictated by: Brittany Pradhan M.D.01/05/2025 10:40 AM Dictation Location: [place] [address] Electronically authenticated by: [id number] Y Date: 01/05/2025 10:40 Dictated By: Brittany Pradhan M.D. Signed By: 01/05/25 1042 DD/ 1040 TD/TT: Blower Operator: US abdomen complete Reviewed date:01/05/2025 07:44:25 PM Interpretation: Performing Lab: Notes/Report: Source Facility: [place] [address] Ultrasound Report Signed Patient: LACEY BEAULIEU MR#: [id number] : 1990 Acct:[id number] Age/Sex: 34 / F ADM Date: 01/05/25 Loc: US Attending Dr: Brendon Vasquez M.D. Ordering Physician: Brendon Vasquez M.D. Date of Service: 01/05/25 Procedure(s): US abdomen complete Accession Number(s): [id number] cc: Brendon Vasquez M.D. [place] [address] Patient Name: LACEY BEAULIEU MRN: [facility]:[id number] date: 1990 Sex: F Assigned Patient Location: Current Patient Location: US Accession/Order Number: [id number] Exam Date: 01/05/2025 10:28 Report Date: 01/05/2025 10:35 At the request of: BRENDON VASQUEZ MD Procedure: US abdomen complete COMPLETE ABDOMINAL ULTRASOUND CLINICAL HISTORY: Gastroenteritis COMPARISON: None The gallbladder is physiologically distended without shadowing calculi, wall thickening or pericholecystic fluid. No intra- or extrahepatic biliary dilatation is evident. The common duct measures 1 - 2 mm. The liver is normal in echogenicity. No intrahepatic masses are seen. There is appropriate hepatopetal flow within the main portal vein. The pancreas shows no significant sonographic abnormality. The right kidney measures 10.1 cm and the left 11.4 cm in craniocaudal dimension. There is no hydronephrosis. The spleen is normal in size and echotexture measuring 10.3 cm in craniocaudal dimension. The IVC is patent. No aortic aneurysm is noted. There is no ascites. US/US abdomen complete IMPRESSION: NEGATIVE ULTRASOUND OF THE ABDOMEN. Impression dictated by: Brittany Pradhan M.D.01/05/2025 10:35 AM Dictation Location: [place] [address] Electronically authenticated by: [id number] Y Date: 01/05/2025 10:35 Dictated By: Brittany Pradhan M.D. Signed By: 01/05/25 1037 DD/ 1035 TD/TT: Blower Operator: [place] [address] Ultrasound Report Signed Patient: LACEY BEAULIEU MR#: [id number] : 1990 Acct:[id number] Age/Sex: 34 / F ADM Date: 01/05/25 Loc: US Attending Dr: Nahum Vasquez M.D. Ordering Physician: Brendon Vasquez M.D. Date of Service: 01/05/25 Procedure(s): US abdomen complete Accession Number(s): [id number] cc: Brendon Vasquez M.D. [place] [address] Patient Name: LACEY BEAULIEU MRN: [id number] date: 1990 Sex: F Assigned Patient Location: US Current Patient Location: US Accession/Order Numb er: [id number] Exam Date: 01/05/2025 10:28 Report Date: 01/05/2025 10:35 At the request of: BRENDON VASQUEZ MD Procedure: US abdome n complete COMPLETE ABDOMINAL ULTRASOUND CLINICAL HISTORY: Gastroenteritis COMPARISON: None The gallbladder is physiologically distended without shadowing calculi, wall thickening or pericholecystic fluid. No intra- or extrahepatic biliary dilatation is eviden t. The common duct measures 1 - 2 mm. The liver is normal in echogenici ty. No intrahepatic masses are seen. There is appropriate hepatopetal flow wit hin the main portal vein. The pancreas shows no significant sonograp hic abnormality. The right kidney measures 10.1 cm and the left 11.4 cm in craniocaudal dimension. There is no hydronephrosis. The spleen is normal in size and echotexture measuring 10.3 cm in craniocaudal dimension. The IVC i s patent. No aortic aneurysm is noted. There is no ascites. US/US abdomen complete IMPRESSION: NEGATIVE ULTRASOUND OF THE ABDOMEN. Impression dictated by: Brittany Pradhan M.D.01/05/2025 10:35 AM Dictation Location: [place] [address] Electronically authenticated by: [id number] Y Date: 01/05/2025 10:35 Dictated By: Brittany Pradhan M.D. Signed By: 01/05/25 1037 DD/ 1035 TD/TT: Blower Operator: HCG Qualitative* Reviewed date:12/29/2024 10:56:59 AM Interpretation: Performing Lab: Notes/Report: [facility] , HCG Qualitative NEGATIVE NEGATIVE Performing Lab: see note ML - [facility] LB Manual Differential Reviewed date:12/29/2024 10:56:59 AM Interpretation: Performing Lab: Notes/Report: [facility] , Segmented Neutrophils % Manual 84.0 43.0-75.0 Lymphocytes Percent Manual 4.0 20.5-60.0 % Monocytes Percent Manual 8.0 1.7-12.0 % Eosinophils Percent Manual 0.0 0.9-7.0 % Basophils Percent Manual 1.0 0.2-2.0 % Atypical Lymphocytes % Manual 3.0 Segmented Neut Absolute Manual 9.49 1.4-6.5 10 3/uL Lymphocytes Absolute Manual 0.45 1.20-3.80 10 3/uL Monocytes Absolute Manual 0.90 0.30-0.80 10 3/ uL Eosinophils Absolute Manual 0.00 0.00-0.70 10 3/uL Basophils Abs Manual 0.11 0.00-0.10 10 3/uL Atypical Lymphocytes Abs Man 0.33 Toxic Granulation 1+ Performing Lab: see note ML - [facility] LB UA RANDOM W or MICROSCOPIC Reviewed date:12/29/2024 10:56:59 AM Interpretation: Performing Lab: Notes/Report: [facility] , Color Urine DK. YELLOW YELLOW Clarity Urine CLEAR CLEAR Specific [place] Urine >=1.030 1.005-1.025 pH Urine 6.0 5.0-9.0 Protein Urine 100 NEG/TRACE mg/dL Glucose Urine UA NEGATIVE NEGATIVE mg/dL Bilirubin Urine SMALL NEGATIVE Ketones Urine 15 NEGATIVE mg/dL Blood Urine TRACE-I NEGATIVE Nitrite Urine NEGATIVE NEGATIVE Urobilinogen Urine 0.2 0.2-1.0 EU/dL Leukocyte Esterase Urine NEGATIVE NEGATIVE WBC Urine 2-5 NONE SEEN #/HPF RBC Urine 0-2 0-2 #/HPF Bacteria Urine MODERATE NONE SEEN #/HPF Mucus Urine MODERATE NONE SEEN Squamous Epithelial Cell Urine FEW NONE/RARE #/LPF Crystals Seen? Seen None Seen #/HPF Amorphous Sediment Urine FEW Cast Seen? NONE SEEN NONE SEEN #/LPF Urine Culture Indicated YES-[facility] Performing Lab: see note ML - [facility] LB PROF 14(COMP METB) Reviewed date:12/29/2024 10:56:59 AM Interpretation: Performing Lab: Notes/Report: [facility] , Sodium 137 136-145 mmol/L Potassium 3.5 3.5-5.1 mmol/L Chloride 102 98-107 mmol/L Carbon Dioxide 21.6 21.0-32.0 mmol/L Anion Gap 16.9 Glucose 154 74-106 mg/dL Blood Urea Nitrogen 14.0 7.0-18.0 mg/dL Creatinine 1.04 0.55-1.02 mg/dL Estimated GFR ( Britni >60 >=60 mL/min/1.73m 2 Estimated GFR (Non- Amber >60 >=60 mL/min/1.73m 2 BUN Creatinine Ratio 13.5 Calcium 8.6 8.5-10.1 mg/dL Bilirubin Total 1.3 0.2-1.0 mg/dL Aspartate Amino Transferase 13 15-37 U/L Alanine Aminotransferase 14 14-59 U/L Alkaline Phosphatase 87 46-116 U/L Total Protein 7.9 6.4-8.2 g/dL Albumin Level 4.0 3.4-5.0 g/dL Globulin 3.9 Albumin Globulin Ratio 1.0 Performing Lab: see note ML - [facility] LB LIPASE Reviewed date:12/29/2024 10:56:59 AM Interpretation: Performing Lab: Notes/Report: [facility] , Lipase 19.0 16.0-77.0 U/L Performing Lab: see note ML - [facility] LB CBC AUTO DIFF Reviewed date:12/29/2024 10:56:59 AM Interpretation: Performing Lab: Notes/Report: [facility] , White Blood Count 11.3 4.0-11.0 10 3/uL Red Blood Count 4.91 4.20-5.40 10 6/uL Hemoglobin 15.0 12.0-16.0 g/dL Hematocrit 44.4 36.0-48.0 % Mean Corpuscular Volume 90.4 81.0-99.0 fL Mean Corpuscular Hemoglobin 30.5 26.7-34.0 pg Mean Corpuscular HGB Conc 33.8 29.9-35.2 g/dL Red Cell Distribution Width 12.9 11.0-15.0 % Platelet Count 241 150-450 10 3/uL Mean Platelet Volume 10.8 9.5-13.5 fL Performing Lab: see note ML - [facility] LB UA DIP NONAUTO WO MICRO (810 02) - IN OFFICE Reviewed date:12/29/2024 10:56:59 AM Interpretation: Performing Lab: Notes/Report: COLOR yellow CLARITY clear GLUCOSE neg BILIRUBIN neg KETONE 7 SPECIFIC GRAVITY 1.015 BLOOD neg PH 6.5 PROTEIN 15 UROBILINOGEN neg NITRITE neg LEUKOCYTE ESTERASE 70+ Urine Culture - [facility] Reviewed date:01/02/2025 04:01:13 PM Interpretation: Performing Lab: Notes/Report: [facility] , Urine Culture - [facility] See Below For Report Urine Culture - FR 20,000 colonies/ml mixed bacterial skin contaminants Urine Culture - [facility] 2 days Urine Culture - [facility] 20,000 colonies/ml mixed bacterial skin contaminants Urine Culture - [facility] Urine Culture - FR 20,000 colonies/ml mixed bacterial skin contaminants Urine Culture - [facility] Testing performed a [facility] Urine Culture - [facility] 20,000 colonies/ml mixed bacterial skin contaminants Urine Culture - [place] [address] [place] [address] Urine Culture - [facility] 20,000 colonies/ml mixed bacterial skin contaminants Performing Lab: see note ML - [facility] Reason For Referral No Information Medications Medication SIG (Take, Route, Fr equency, [...] Question Answer Notes Patient is a nonsmoker Alcohol Screen (Audit-C) Question Answer Notes Did you have a drink containing alcohol in the p ast year? No Points 0 Interpretation Negative AUDIT-C (Standard) Question Answer Notes Did you have a drink containing alcohol in the p ast year? No Points 0 Interpretation Negative Problems Problem Type SNOMED Code ICD Code Onset Dates Problem Status W/U Status Risk Notes Problem Well adult (246073691) Well adult (Z00.00) Active confirmed Vital Signs Temperature 98.0 degrees Fahrenheit 08/06/2024 Blood pressure diastolic 80 mm Hg 12/28/2024 Height 65 in 12/28/2024 Blood pressure systolic 120 mm Hg 12/28/2024 Weight 150.6 lbs 12/28/2024 BMI 25.06 kg/m2 12/28/2024 Encounters Encounter Location Date Provider Diagnosis [facility] [address] [place] [address] 07/22/2024 Francisco Javier Vasquez Burning with urinati on R30.0 [facility] [address] [place] [address] 08/10/[address] [facility] [address] [place] [address] 08/11/[address] [facility] [address] [place] [address] 08/13/2024 Francisco Javier Herediay [facility] [address] [place] [address] 08/19/2024 Francisco Javier Vasquez Urine frequency R35. 0 [facility] [address] [place] [address] 12/31/2024 Francisco Javier Hoy Gastroenteritis K52. [address] [address] 01/05/2025 Francisco Javier Hoy [address] [address] 08/06/2024 Letty Cee Viral URI J06.[address] [address] 06/14/2024 Francisco Javier Hoy Well adult Z00.[address] [address] 08/16/2024 Francisco Javier Hoy Urine frequency R35. 0 and Acute bronchitis, unspecified organism J20.[address] [address] 10/14/2024 Francisco Javier Hoy Urinary frequency R3 5.[address] [address] 12/28/2024 Letty Coleman Dysuria R30.0 and Gastroenteritis K52.[address] [address] 07/21/2024 Francisco Javier Hoy Burning with urinati on R30.0 ; UTI (urinary tract infection), uncomplicated N39.0 and Dysuria R30.0 Assessments Encounter Date Diagnosis (ICD Code) Assessment Notes Treatment Notes Treatment Clinical Notes Section Notes 06/14/2024 Well adult (ICD-10 - Z00.00) 07/21/2024 Burning with urination (ICD-10 - R30.0) 10/14/2024 Urinary frequency (ICD-10 - R35.0) 12/28/2024 Dysuria (ICD-10 - R30.0) UA here negative sx have diminished, gone UA CS if return 12/28/2024 Gastroenteritis (ICD-10 - K52.9) push fluids, electrolytes 07/22/2024 Burning with urination (ICD-10 - R30.0) 08/19/2024 Urine frequency (ICD-10 - R35.0) 12/31/2024 Gastroenteritis (ICD-10 - K52.9) 08/06/2024 Viral URI (ICD-10 - J06.9) likely viral, just started supportive care continue to monitor defers viral testing 08/16/2024 Urine frequency (ICD-10 - R35.0) 08/16/2024 Acute bronchitis, unspecified organism (ICD-10 - J20.9) Rest and drink more liquids, especially water. You may use a humidifier or vaporizer to help keep the drainage moist. Uvmt-ryk-vwlbbnl Nasal Saline may help the stuffy and runny nose. Use Ibuprofen and or Tylenol as needed for fever, chills, body aches or pain. Children 5 years old should not be given vsns-yfu-blxwvyw cough and cold medications such as guaifenesin and dextromethorphan. If you're over age 5, you may try kzck-rkl-werxbty cold medications such as guaifenesin and dextromethorphan, or multi-symptom cold reliever such as Dayquil to help reduce the symptoms. Antibiotics have been prescribed. You should take these until completed and follow the directions. Antibiotics can sometimes cause upset stomach, and in rare cases, serious allergic reactions or serious gastrointestinal problems. If you start having severe abdominal pain, severe vomiting, or bloody diarrhea, you should be reevaluated by your physician or urgent care immediately. Follow up with your Primary Care Provider or return to clinic if symptoms do not improve within 3-5 days. If you develop severe symptoms such as shortness of breath, repeated vomiting, coughing up blood, or chest pain you should go to the emergency room or call 911 07/21/2024 UTI (urinary tract infection), uncomplicated (ICD-10 - N39.0) Drink plenty of water. Avoid drinks like coffee, alcohol and soft frinks, as these can irritate your bladder and aggravate your frequent or urgent need to urinate. Apply a warm heating pad to your abdomen to minimize bladder pressure or discomfort. You have been prescribed antibiotics for a urinary tract infection. Antibiotics may bother your stomach, so try taking them with a light meal (unless instructed otherwise by your pharmacist). It is important to take them until they are finished. You can use jcqt-gyi-gybntbd acetaminophen or ibuprofen if needed for pain. You should follow up with your Primary Care Physician or return to clinic if not improving in the next 3-5 days. 07/21/2024 Dysuria (ICD-10 - R30.0) Plan Of Treatment Pending Test Test Name Order Date CMP (COMPLETE METABOLIC PANEL) 4 UA (URINALYSIS, COMPLETE) 12/28/2024 HEMOGLOBIN A1C (GLYCO) 06/14/2024 IRON, TOTAL 06/14/2024 LIPID PANEL (CHOL/TRIG/HDL/LDL) 06/14/20 24 CBC WITH DIFF 06/14/2024 Urine Culture 12/28/2024 US ABD 12/31/2024 XR ABD FLAT_UP 12/31/2024 THYROID PANEL (T4/TSH/FREE T3) 4 Insurance Providers Payer Name Payer Address Payer Phone Subscriber Number Group Number Insured Name Patient Relationship to Insured Coverage Start Date Coverage End Date [employer] [address] [address] [place] [address] [id number] Richard Beaulieu Spouse - patient is the spouse of the insured Medical (General) History Medical History History ICD Code COVID-19 U07.1 Paresthesia of right leg R20.2 Low back pain M54.5 Insomnia G47.00 Surgical History Surgery Date(Month/Year) denies Hospitalization History Reason Date(Month/Year) denies
--- OUTSIDE RECORDS SUMMARY | 2025-05-26 14:56 | XMS_ITS | Encounter Summary ---
Author Organization [facility] Address [address] [facility] [place] [address] Care Team Providers Care Registered Travel Nurse Name Role Phone Hany Curry MD Primary Care Provider [phone] Encounter Details Date Type Department Care Team (Late Contact Info) Description 08/28/2023 Clinisync Result Encounter [facility] Department Unsolicited Debbie Cross PA [address] [place], [facility] Social History Tobacco Use Types Packs/Day Years [...] EDT Procedure Visit [facility] [address] [place] [address] Tez Pompa DO [address] Terence Guidry, [facility] documented as of this encounter Procedures Procedure Name Priority Date/Time Associated Diagnosis Comments US OB GROWTH 08/28/2023 2:02 AM EST documented in this encounter Results * US OB GROWTH (08/28/2023 2:02 AM EST) Anatomical Region Laterality Modality Other 08/28/2023 2:02 AM EST Narrative 08/28/2023 2:02 AM EST [address] [address] Ultrasound Report Signed Patient: LACEY BEAULIEU MR#: [id number] : 1990 Acct:[id number] Age/Sex: 33 / F ADM Date: 08/27/23 Loc: US Attending Dr: Debbie Cross Ordering Physician: Debbie Cross Date of Service: 08/27/23 Procedure(s): US OB growth Accession Number(s): [id number] cc: Debbie Cross; Physician,Non-Staff M.DDelores The [place] [address] Patient Name: LACEY BEAULIEU MRN: [id number] date: 1990 Sex: F Assigned Patient Location: US Current Patient Location: Accession/Order Number: [id number] Exam Date: 08/27/2023 10:07 Report Date: 08/28/2023 02:02 At the request of: DEBBIE CROSS Procedure: US OB growth EXAMINATION: US OB growth HISTORY: Size Inconsistent With Dates O26.849 COMPARISON: Ultrasound OB anatomy 06/04/2023 FINDINGS: Heart Rate: 139.9 bpm Number: 1.0 Position: CEPHALIC Amniotic Fluid Volume: 13.5 cm Maximum Vertical Pocket: 3.8 cm BIOMETRY: BPD: 8.0 cm cm; 32 weeks 2 days; 49% HC: 29.2 cmcm; 32 weeks 1 days ; 18% AC: 30.3 cm cm; 34 weeks 2 days; 96% FL: 6.0 cm cm; 31 weeks 1 days; 17% EFW: 2099.6 grams; 72% FL/AC: 19.7 FL/BPD: 74.5 HC/AC: 1.0 GESTATIONAL AGE: Age by EDC: 32 weeks 0 days BELKYS by EDC: 10/22/2023 Age by US: 32 weeks 3 days BELKYS by US: 10/19/2023 US/US OB growth IMPRESSION: 1. Single live intrauterine with growth detailed above. Electronically authenticated by: ATIF YOUNG Date: 08/28/2023 02:02 Dictated By: Atif Young M.D. Signed By: 08/28/23204 DD/ 1 TD/TT: Residential Interior Designer: Procedure Note Radiology, Radiologist, MD - 08/28/2023 [place] [address] Ultrasound Report Signed Patient: LACEY BEAULIEU CMR#: [id number] : 1990Acct:[id number] Age/Sex: Date: 08/27/23 Loc: US Attending Dr: Debbie Cross Ordering Physician: Debbie Cross Date of Service: 08/27/23 Procedure(s): US OB growth Accession Number(s): [id number] cc: Debbie Cross; Physician,Non-Staff [place] [facility] [place] [id number] Patient Name: LACEY BEAULIEU MRN: [facility]:[id number] date: 1990 Sex: F Assigned Patient Location: US Current Patient Location: Accession/Order Number: [id number] Exam Date: 08/27/2023 10:07 Report Date: 08/28/2023 02:02 At the request of: DEBBIE CROSS Procedure: US OB growth EXAMINATION: US OB growth HISTORY: Size Inconsistent With Dates O26.849 COMPARISON: Ultrasound OB anatomy 06/04/2023 FINDINGS: Heart Rate: 139.9 bpm Number: 1.0 Position: CEPHALIC Amniotic Fluid Volume: 13.5 cm Maximum Vertical Pocket: 3.8 cm BIOMETRY: BPD: 8.0 cm cm; 32 weeks 2 days; 49% HC: 29.2 cmcm; 32 weeks 1 days ; 18% AC: 30.3 cm cm; 34 weeks 2 days; 96% FL: 6.0 cm cm; 31 weeks 1 days; 17% EFW: 2099.6 grams; 72% FL/AC: 19.7 FL/BPD: 74.5 HC/AC: 1.0 GESTATIONAL AGE: Age by EDC: 32 weeks 0 days BELKYS by EDC: 10/22/2023 Age by US: 32 weeks 3 days BELKYS by US: 10/19/2023 US/US OB growth IMPRESSION: 1. Single live intrauterine with growth detailed above. Electronically authenticated by: ATIF YOUNG Date: 08/28/2023 02:02 Dictated By: Atif Young M.D. Signed By:08/28/23204 DD/ 1 TD/TT: Residential Interior Designer: us Debbie [facility] Final Result documented in this encounter Visit Diagnoses Not on filedocumented in this encounter Care Teams Registered Travel Nurse Relationship Specialty Start Date End Date Hany Curry MD [address] [place] [address] PCP - General Family Medicine 03/21/23 documented as of this encounter
--- OUTSIDE RECORDS SUMMARY | 2025-05-26 15:22 | XMS_ITS | CCD ---
Author Organization [facility] Care Team Providers Care Electronic Game Developer Name Role Phone Enma Palacios Unavailable PEÑA ., DR VILLALPANDO Attending Unavailable PEÑA ., DR VILLALPANDO Consulting Unavailable PEÑA ., DR VILLALPANDO Primary Care Unavailable PEÑA ., DR VILLALPANDO Admitting Unavailable PEÑA, IRASEMA Attending Unavailable AMERICA, RENE Attending Unavailable PEÑA, IRASEMA Attending Unavailable AMERICA, RENE Attending Unavailable AMERICA, RENE Attending Unavailable PEÑA, IRASEMA Attending Unavailable PEÑA, IRASEMA Attending Unavailable JUVE GONZALEZ Attending Unavailable PEÑA, IRASEMA Attending Unavailable PEÑA, IRASEMA Attending Unavailable PEÑA, IRASEMA Attending Unavailable AMERICA, RENE Attending Unavailable Heather Rubin DO Attending Provider Heather Rubin Attending Unavailable Heather Rubin Admitting Unavailable Hany Curry MD Primary Care Provider [phone] Allergies Allergy Classification Reported Allergen(s) Allergy Type Date of Onset Reaction(s) Facility (1 source) Penicillin V Drug Allergy rash [facility] Other (1 source) sulfaSALAzine Drug Allergy rash [facility] Other (1 source) Penicillin Drug Allergy [facility] (1 source) Sulfonamides (Antibiotic) Drug allergy (disorder) [facility] (3 sources) Penicillins; Translations: [Penicillins] Allergy to substance 1 [facility] (2 sources) Sulfonamides (Antibiotic); Translations: [Sulfa (Sulfonamide Antibiotics)] Allergy to substance 1 [facility] (1 source) Sulfonamides (Antibiotic) Propensity to adverse reactions 3 Hives [facility] Medications Current Medications Medication Drug Class(es) Dates Sig (Normalized) Sig (Original) Cetirizine (1 source) Histamine-1 Receptor Antagonist Cetirizine HCl (ZYRTEC PO) Take by mouth Active IUD's (1 source) IUD's Active levonorgestrel 0.133453 mg/hr intrauterine system (2 sources) Progestin, Progestin-containi ng Intrauterine Device Start: 12-16-2023 End: 12-28-2028 Levonorgestrel intrauterine device 52 mg Problems Problem Classification Problem Date Documented Date [...] bacterial skin contaminants 2 Days PERFORMED BY: [place] [address] PATHOLOGIST TURNER SPLITTER MACHINE OPERATOR TAMRA MORTENSEN M.D. Normal [facility] Comment on above: Performed By: #### CUU #### [facility] [address] [place] [address] PAP ACOG PANEL 2: 30 to 65on 02-12-2023 . . Normal [facility] Comment on above: Result Comment: Performed at: WB Performed By: #### [id number] #### [facility] [address] [address] [address] Stephie Kelly Age Gdln ACOG Testing 30-65 [facility] Comment on above: Performed By: #### [id number] #### [facility] [address] [place] [address] Dr. Stephie Kelly DIAGNOSIS: Comment [facility] Comment on above: Result Comment: NEGATIVE FOR INTRAEPITHE LIAL LESION OR MALIGNANCY. Performed at: WB Performed By: #### [id number] #### [facility] [address] [address] [address] Stephie Kelly HPV Aptima Negative Normal Negative [facility] Comment on above: Result Comment: This nucleic acid amplif ication test detects fourteen high-risk HPV types (16,18,31,33,35,39,45,51,52,56,58,59,66,68) without differentiation. Performed at: =G Performed By: #### [id number] #### [facility] [address] [address] [address] Stephie Kelly HPV Genotype Reflex Comment Normal [facility] Comment on above: Result Comment: Criteria not met, HPV Ge notype not performed. Performed at: WB Performed By: #### [id number] #### [facility] [address] [place] [address] Dr. Stephie Kelly Methodology: Comment Normal [facility] Comment on above: Result Comment: This liquid based ThinPr ep(R) pap test was screened with the use of an image guided system. Performed at: WB Performed By: #### [id number] #### [facility] [address] [place] [address] Dr. Stephie Kelly Note: Comment Normal [facility] Comment on above: Result Comment: The [...] Performed at: WB Performed By: #### [id number] #### [facility] [address] [address] [address] Stephie Kelly Performed by: Comment Normal [facility] Comment on above: Result Comment: Lor Anthony, Cytot echnologist (ASCP) Performed at: WB Performed By: #### [id number] #### [facility] [address] [place] [address] Dr. Stephie Kelly Specimen adequacy: Comment Normal [facility] Comment on above: Result Comment: Satisfactory for evaluat ion. Endocervical and/or squamous metaplastic cells (endocervical component) are present. Performed at: WB Performed By: #### [id number] #### [facility] [address] [place] [address] Dr. Stephie PENA Quick Testingon 2020 Result Negative [facility] Other Vital Signs Date Time Vital Sign Value Performing Clinician Facility 07-24-2021 16:50-0400 Body height 165.1 cm Enma Philip Other [facility] Other 07-24-2021 16:50-0400 Body mass index (BMI) [Ratio] 25.79 kg/m2 Enma Philip Other [facility] Other 07-24-2021 16:50-0400 Body temperature 99.1 [degF] Enma Philip Other [facility] Other 07-24-2021 16:50-0400 Body weight 70.31 kg Enma Philip Other [facility] Other 07-24-2021 16:50-0400 Respiratory rate 18 /min Enma Philip Other [facility] Other 07-24-2021 16:50-0400 SaO2% (BldA) [Mass fraction] 99 % Enma Philip Other [facility] Other Encounters Encounter Date Encounter Type Care Provider Facility Start: 05-26-2025 End: 05-26-2025 BamVintedo flowsheet Irasema Peña DO [facility] [place] [facility] Start: 05-26-2025 End: 05-26-2025 Bamboo flowsheet Irasema Peña DO Work Phone: [facility] Start: 12-29-2024 End: 12-29-2024 ambulatory Heather Rubin [facility] Work Phone: Start: 12-29-2024 End: 12-29-2024 Departed Referred Heather Rubin DO Work Phone: [facility] Start: 05-17-2024 End: 05-17-2024 ambulatory IRASEMA PEÑA Not Available Start: 01-27-2024 End: 01-27-2024 ambulatory IRASEMA PEÑA Not Available Start: 01-22-2024 End: 01-22-2024 ambulatory JUVE ELLAEIM Not Available Start: 12-30-2023 End: 12-30-2023 ambulatory IRASEMA PEÑA Not Available Start: 12-16-2023 End: 12-16-2023 ambulatory IRASEMA PEÑA Not Available Start: 11-26-2023 End: 11-26-2023 ambulatory RENE AMERICA Not Available Start: 10-14-2023 End: 10-14-2023 ambulatory IRASEMA PEÑA Not Available Start: 10-08-2023 End: 10-08-2023 ambulatory RENE AMERICA Not Available Start: 10-01-2023 End: 10-01-2023 ambulatory IRASEMA PEÑA Not Available Start: 09-22-2023 End: 09-22-2023 ambulatory RENE AMERICA Not Available Start: 09-08-2023 End: 09-08-2023 ambulatory IRASEMA PEÑA Not Available Start: 08-25-2023 End: 08-25-2023 ambulatory RENE AMERICA Not Available Start: 02-05-2023 End: 02-05-[address] IRASEMA POMPA . Facility: Start: 07-24-2021 Office outpatient vi sit 15 minutes Enma Palacios [facility] Plan of Treatment Date Care Activity Detail Author Start: 05-26-2025 End: 05-26-2025 Patient encounter procedure 05/26/2025 10:00 AM EDT Office Visit LENIN HERNANDEZ [address] [place] [address] Irasema Pompa, DO [address] [place] [address] [place] [address] Arrived [facility] Comment on above: Arrived Start: 12-29-2024 Bacteria identified in Urine by Culture Urine Culture [facility] Start: 12-29-2024 Urine culture [facility] Payers Date Payer Category Payer Self-pay 2022 Private Health Insurance [employer] [id number] 2022 Unknown [id number] 1992 Unknown [id number] 2.16.840.1.294385.3.579. 2.593 1992 Unknown [id number] 2.16840.1.876227.3.579. 2.9 1992 Unknown [id number] 2.16840.1.554278.3.579. 2.9 1992 Unknown [id number] 2.16840.1.812660.3.579. 2.9 1992 Unknown [id number] 2.16.840.1.688428.3.579. 2.9 1992 Unknown [id number] 2.16840.1.578849.3.579. 2.9 1992 Unknown [id number] 2.16.840.1.120688.3.579. 2.1258 1992 Unknown [id number] 2.16.840.1.108638.3.579. 2.1258 1992 Unknown [id number] 2.16.840.1.261114.3.579. 2.1258 1992 Unknown [id number] 2.16.840.1.950034.3.579. 2.1258 1992 Unknown [id number] 2.16.840.1.057642.3.579. 2.1258 1992 Unknown [id number] 2.16.840.1.787507.3.579. 2.1258 1992 Unknown [id number] 2.16.840.1.034583.3.579. 2.1259 1959 Unknown [id number] Unknown [id number] [id number] Social History Date Type Detail Facility Start: 01-22-2024 Sex Assigned At N [facility] Inquirly Other Tobacco smoking stat [facility] Unknown if ever smoked [facility] Work Phone: Start: 12-30-2024 Sex Female (finding) [facility] Start: 1990 Sex Assigned At Female F [facility] Start: 04-20-2023 Tobacco smoking stat [facility] Never smoked tobacco [facility] Start: 04-20-2023 Tobacco use and exposure Smokeless tobacco non-user [facility] Start: 05-17-2024 Alcoholic beverage intake Lifetime non-drinker (finding) [facility] Start: 01-22-2024 History of Social function [facility] Start: 1990 Sex assigned at Not on file [facility] Evaluation note 07-24-2021 Note Date & Type [...] Patient care instructions given in writting by [facility] At Home document. [employer] Other Evaluation note Note Date & Type Note Facility Evaluation note No assessment information availa [facility] Work Phone: Summary Purpose Family History No [...] and content) DATE CREATED AUTHOR 02/12/2023 [facility] DATE CREATED AUTHOR AUTHOR'S ORGANIZ ATION 05/18/2024 [facility] EPIC DATE CREATED AUTHOR AUTHOR'S ORGANIZ ATION 01/01/2025 [facility] Care Teams (unrecognized sec tion and content) Team Status: Inactive Member Role Status Dates Heather Rubin DO Attending Provider Active Start: December 29, 2024 End: December 29, 2024 Electronic Game Developer Relationship Specialty Start Date End Date Hany Curry MD [address] [place] [address] PCP - General Family Medicine 03/21/23 Goals (unrecognized section and content) Goals may [...] BE BASED ON THE PRIMARY CLINICAL RECORDS. [facility] [employer] [facility]. provides no warranty or guarantee of the accuracy or completeness of information in this document.
[2025-05-30 11:09] LABS: Age Gdln ACOG Testing Note (.); IGP, Aptima HPV, rfx 16/18,45 Note (.)
== END 2025-05-26 14:50 | disposition home or self-care (01) ==
LOC: LAB 14:49
PROVIDERS: PCP Family Medicine; Visit Provider Obstetrics & Gynecology
DX: Z01.419 Encounter for gynecological examination (general) (routine) without abnormal findings (principal)
CPT/HCPCS: 87624; 88175